=== PATIENT | male | born 1985 | race Asian ===

== ENCOUNTER 2020-07-23 09:47 | Observation (INO) ==
--- NOTE | 2020-06-29 14:08 | PAT Medication Instructions ---
Medication Instructions Date of Service June 29, 2020 Home Medications Medication Instructions Recorded miscellaneous medical supply #1 ea 10/29/18 lansoprazole [Prevacid SoluTab] 30 mg PO QAM cephalexin 500 mg PO QID sulfamethoxazole-trimethoprim 1 tab PO BID cetirizine 10 mg PO QAM Continue as directed cephalexin 500 mg PO QID sulfamethoxazole-trimethoprim 1 tab PO BID DO NOT take the morning of surgery cetirizine 10 mg PO QAM Take morning of surgery With a small sip of water, OTHERWISE NOTHING TO EAT OR DRINK AFTER MIDNIGHT: lansoprazole [Prevacid SoluTab] 30 mg PO QAM Other Notes If you have any questions please call us at [phone] or [phone] or [phone] or [phone]
--- NOTE | 2020-07-16 12:20 | Anesthesiology Consultation ---
Date of Service July 16, 2020 Assessment & Plan (1) Encounter for pre-operative examination: COVID screening: Per assessment on 07/16: Travel screen- returned from [place] 07/10-07/13. Patient vaccinated. No known COVID-19 positive contacts or current COVID-19 related symptoms. Surgeon arranging preop COVID testing (scheduled 07/21; [facility]). Awaiting results. Chart Review Chart Review: Acceptable Risk for Surgery and Patient seen in Pre Admission Testing Teaching & Discussion Pre-Anesthesia Teaching/Discussion Notes: Instructed NPO after midnight before surgery,except medications with 15 cc of water. Medication instructions provided according to the PAT guidelines. History Surgery Operation Date: 07/23/20 11:55 Proposed Procedures p Robotic Assisted Laparoscopic Adrenalectomy - Pankaj Briceno DO Height/Weight Height: 6 ft 0.5 in Weight: 95 kg Allergies Allergy/AdvReac Type Severity Reaction Status Date / Time No Known Allergies Allergy Verified 07/16/20 13:29 Medications Home Medications Medication Instructions Recorded Confirmed Last Taken miscellaneous medical supply #1 ea 10/29/18 07/16/20 Unknown lansoprazole [Prevacid SoluTab] 30 mg PO QAM 09/30/19 07/16/20 06/21/20 cetirizine 10 mg PO QAM 06/29/20 07/16/20 Unknown Past Medical History Medical History Adrenal mass, right History of seizure age 2 > "grew out of"/no issues since Hyperlipemia no meds Hypertension no meds Myelolipoma JAD (obstructive sleep apnea) Non-compliant with CPAP Seasonal allergies Exercise / Class Metabolic Activity II 4-5 Yardwork/Stairs/Walk up hill Past Family History Family History Other Hypertension Past Surgical History Surgical History History of appendectomy History of colonoscopy Past Anesthesia History No Hx of Anesthesia Complications and No Family Hx of Anesthesia Complications History of PONV No Hx of PONV and No Hx of Motion Sickness Social History Smoking Status: Current every day smoker tobacco type: cigarettes Smoking cigarettes per day: 10 cigs per day Do You Dip or Chew Tobacco: No Hx Alcohol Use: Yes Alcohol type: hard liquor alcohol intake frequency: a few times a week Alcohol Intake Frequency Comment: "7-10 shots liquor at a time" 3 times/week Hx Substance Use: No substance use type: does not use Review of Systems Patient denies chest pain, shortness of breath, dyspnea on exertion, fever, chills, cough, wheezing, palpitations. Physical Exam Vital Signs VITALS BP 118/81 P 98 TEMP 99.1 SP02 95%RA RESP 16 PHYSICAL Full cervical extension range of motion. Full TMJ range of motion. TMD 4 finger breaths Mallampati Score 2 Dentition: intact, lower front chipped tooth repair Lungs: clear throughout to auscultation Cardiac: regular rate and rhythm, no murmurs noted Spine: normal Extremities: no edema Lab Results Anesthesia Preop Results Results Anesthesia Widget: WBC 7.95 K/uL (4.8-10.8) 07/16/20 Hgb 17.7 g/dL (14.0-18.0) 07/16/20 Hct 51.9 % (42-52) 07/16/20 Plt 299 K/uL (130-400) 07/16/20 Na 139 mmol/L (136-145) 07/16/20 K 4.1 mmol/L (3.5-5.1) 07/16/20 Cl 103 mmol/L (98-107) 07/16/20 CO2 30 mmol/L (21-32) 07/16/20 BUN 7 mg/dl (7-18) 07/16/20 Creat 0.91 mg/dl (0.6-1.4) 07/16/20 Glucose Level 102 mg/dl (70-99) H 07/16/20 Urine Color Yellow 07/16/20 Urine Appearance Clear (Clear) 07/16/20 Urine pH 7.0 (4.5-7.5) 07/16/20 Urine Specific [place] 1.016 (1.000-1.030) 07/16/20 Urine Protein Negative (Negative) 07/16/20 Urine Glucose (UA) Negative (Negative) 07/16/20 Urine Ketones Trace (Negative) H 07/16/20 Urine Blood Negative (Negative) 07/16/20 Urine Nitrite Negative (Negative) 07/16/20 Urine Bilirubin Negative (Negative) 07/16/20 Urine Urobilinogen Negative (Negative) 07/16/20 Urine Leukocyte Esterase Negative (Negative) 07/16/20 Blood Type O Positive 07/16/20 Antibody Screen NEGATIVE 07/16/20 Testing Electrocardiogram Date: 07/16/20 Findings: + NSR @ (95) Chest X-Ray Date: 07/16/20 Findings: + NAD
[~2020-07-23 09:47] MED LIST: LR 15ML/HR IV SCH; ceFAZolin 2000MG 2,000 MG/15 ML SYR IV SCH
[2020-07-23] MEDS ORDERED: fentaNYL citrate 100 MCG/2 ML VIAL ONE ×3 (10:03→17:11)
[2020-07-23] MEDS ORDERED: MIDAZOLAM HCL 1 MG/ML 2ML VIAL ONE (10:03)
[2020-07-23] MEDS ORDERED: SUGAMMADEX SODIUM 200 MG/2 ML VIAL IV ONE (10:17)
[2020-07-23] MEDS ORDERED: ACETAMINOPHEN 1000 MG/100 ML IV IV ONE (10:18)
[2020-07-23] MEDS ORDERED: BUPIVACAINE 0.5 % 5 MG/1 ML MPF 30ML VIAL ONE (11:13)
[2020-07-23] MEDS ORDERED: fentaNYL citrate 100 MCG/2 ML VIAL IV PRN (11:45)
[2020-07-23] MEDS ORDERED: HYDROmorphone INJ 2 MG/ML SYR/VIAL IV PRN (11:45)
[2020-07-23] MEDS ORDERED: ONDANSETRON INJ 2 MG/ML 2 ML VIAL IV PRN ×2 (11:45→18:30)
[2020-07-23] MEDS ORDERED: ATROPINE SULFATE 0.1 MG/ML 10ML SYR IV PRN (11:45)
[2020-07-23] MEDS ORDERED: ePHEDrine sulfate 50 MG/ML AMP IV PRN (11:45)
--- NOTE | 2020-07-23 12:29 | History & Physical Bridge Note ---
Date of Service July 23, 2020 History & Physical Bridge Note I have examined the patient, reviewed the History & Physical and in the interval since the performance of the History & Physical I have noted the following changes of clinical significance: no changes noted
[2020-07-23] MEDS ORDERED: TISSEEL FIBRIN SEALANT 10ML TOP ONE (14:18)
[2020-07-23] MEDS ORDERED: SURGICEL ABSORB HEMOSTAT 2IN X 14IN TOP ONE (14:18)
[2020-07-23] MEDS ORDERED: FLOSEAL HEMOSTATIC MATRIX 10ML TOP ONE (14:18)
[2020-07-23] MEDS ORDERED: DEXAMETHASONE SOD INJ 4 MG/ML VIAL ONE (14:39)
[2020-07-23] MEDS ORDERED: PROPOFOL IV EMULSION 10 MG/ML 20 ML VIAL IV ONE (14:39)
[2020-07-23] MEDS ORDERED: ROCURONIUM BROMIDE 10 MG/ML 5 ML VIAL IV ONE (14:39)
[2020-07-23] MEDS ORDERED: diphenhydrAMINE 50 MG/ML VIAL ONE (14:39)
[2020-07-23] MEDS ORDERED: PHENYLEPHRINE 100MCG/ML 5ML SYR ONE (14:39)
[2020-07-23] MEDS ORDERED: LIDOCAINE 2% 2 ML VIAL/AMP(20MG/ML) INFIL ONE (14:39)
[2020-07-23] MEDS ORDERED: ONDANSETRON INJ 2 MG/ML 2 ML VIAL ONE (14:39)
--- NOTE | 2020-07-23 15:31 | Procedure Note ---
Procedure Note Date of Service July 23, 2020 Radial arterial line placed in right radial after induction in preparation for adrenalectomy with Dr. Briceno. Right wrist prepped with chlorhexidine and draped with sterile towels. 20 G angiocath placed under sterile technique utilizing sterile gloves, surgical hats and masks. Catheter threaded using seldinger technique with return of pulsatile, bright red blood. Site covered with occlusive dressing and taped in place. Waveform consistent with correct arterial placement. After placement, fingers of procedural hand had normal perfusion. Patient tolerated procedure well without complications. Allyson Bray MD, PhD Anesthesiologist Coding
[2020-07-23] MEDS ORDERED: VANCOMYCIN HCL 1000MG/20ML VIAL ONE (15:43)
[2020-07-23] MEDS ORDERED: KETOROLAC 30 MG/ML VIAL ONE (16:06)
[2020-07-23] MEDS ORDERED: PHENYLEPHRINE HCL 10 MG/ML VIAL ONE (16:16)
--- NOTE | 2020-07-23 17:31 | Operative Report ---
PG Post Operative Report Pre & Post Diagnosis Operation Date: 07/23/20 11:45 Pre-Op Diagnosis: Right Retroperitoneal/Adrenal Mass likely Myelolipoma Post-Op Diagnosis: Right Retroperitoneal/Adrenal Mass likely Myelolipoma I identified the patient and participated in the time-out.: Yes Procedure Operation Date: 07/23/20 11:45 Actual Procedures p Robotic-Assisted Right Laparoscopic Adrenalectomy with resection of retroperitoneal mass including resection of inferior liver edge attached to the mass, extensive lysis of adhesions (Right) - Pankaj Briceno DO Surgeon Pankaj Briceno, II, DO Clinical Medical Transcriptionist ELDA Coleman Estimated Blood Loss 150 Findings Consistent with Post-Op Diagnosis Retroperitoneal mass on right appearing to come off of right adrenal gland with likely necrotic fluid and severe attachment to Reidel's Lobe of the liver requiring resection of a small section of liver. Specimens Right adrenal gland with large retroperitoneal mass and resection of inferior edge of liver. Drains 10 Fr flat drain 18 Fr Tovar Anesthesia Type General Complications none Disposition Disposition: Recovery Room Indications Patient with large retroperitoneal mass/lession thought to likely be myelolipoma vs adenoma of the adrenal gland. Patient underwent workup for functional status. Patient was specifically worked up for pheochromocytoma and found to be negative. Risks and benefits discussed at length. Description of Procedure The patient was brought to the operative suite and placed under general endotracheal intubation anesthesia in the supine position. The patient was transferred to lateral position with the right flank exposed. The patient was placed into a flex'ed position and then placed into mild reverse Trendelenburg. At this point, the patient prepped and draped in the usual sterile fashion and a timeout was completed. Preoperative weight based antibiotics had been given. ROBBY's and SCD's were placed on the patient's lower extremities. A catheter was placed by nursing using sterile technique. With the time out completed the patient was flexed and the skin was marked. The skin lateral to the right midclavicular line was anesthetized. A small incision was made into the skin and subcutaneous tissues. A Varess needle was selected and placed. The needle was easily moved and it was irrigated and aspirated without any issues or concerns for placement. Insufflation commenced. Once insufflated, the lateral edge of the rectus sheath was marked and anesthetized. The skin was incised and a camera port was placed. The cavity was insufflated to 15 mmHG. The laparoscopic camera was placed and the abdominal cavity inspected. No concerning features were noted. At this point, the skin was marked for port placement and 3 x 8mm working ports were placed. The skin was anesthetized down to fascia and an approx 1cm incision was made to place the 3 x 8mm ports. A 10mm and 5 mm speech pathology assistant ports were also placed in similar fashion under direct visualization. The robot was positioned and docked. The camera was placed and all trocars were positioned under direct visualization. ELDA Tapia was integral in port placement, camera utilization, and docking procedure. She remained in sterile attire and then proceeded to assist the remainder of the case. The colon was mobilized medially to expose the retroperitoneum and the area assessed. Significant Adhesions were freed to allow mobilization. Greater than 30 minutes was required for lysis of adhesions. An additional small amount of adhesions were noted from the colon and were freed. These were dissected with blunt technique. Cautery was used to assist dissection and control bleeding. The retroperitoneal fat was assessed. The adenoma as well as the IVC was identified. Care was taken to dissect down near the IVC. This was then followed superiorly. Dissection stayed toward the midline along the IVC and the ureter and gonadal vein were avoided. The dissection was followed to the renal pelvis. The Renal Vein was identified and exposed. Dissection was taken further superior. The adenoma began to limit dissection. This was then mobilized and care was taken to slowly dissect between the adenoma/adrenal gland and the IVC. The Adrenal vein was identified. Two hemolock clips were used to clamp the vein. No changes in heart rate or blood pressure occurred with placement of the clips. The vein was then transected. The very large retroperitoneal mass made dissection difficult and limited mobility. It was difficult to fully determine if the mass was coming off of the adrenal gland, which was able to be largely seen intact, or if it was a separate retroperitoneal mass. The adrenal gland with the attached/adjacent mass was then slowly dissected. Small vessels were ligated and cut as dissection progressed. The posterior, inferior, and superior surfaces were dissected free. No major bleeding or other issues. The posterior and superior edge was found to be increasingly adhered to the liver surfaces as dissection moved laterally. The inferior edge was also f ound to be more attached to the retroperitoneal fat and superior kidney as the dissection moved lateral. The edge adjacent to Farideh's lobe of the liver was found to be severely adhered and manipulation caused tearing of both the liver capsule and the mass. Necrotic appearing tissue was found within the mass. In order to try to maintain as much integrity of the mass as possible and limit further tearing or spillage the edge of the liver on the inferior and posterior portion and along Farideh's lobe was resected and sent still attached to the retroperitoneal mass. In the inferior posterior corner a bleeding vessel was found and was ligated with hemoclips. All bleeding was controlled on the resected edge of the liver. Cautery as well as hemostatic agents were utilized on top of pressure. The mass was then finally able to be fully freed. It was moved inferiorly and the entire wound bed was assessed. Vancomycin infused solution as well as sterile water was used copious times to irrigate the entire area. All remaining tissue was inspected. The specimen was placed into a catch bag and set to the side. Surgicel hemostatic agent sheets were placed under the liver and on the incised edge. The resected edge in particular was evaluated and additional agents were placed. Hemostatic agents Tisseel and Floseal were also placed. Hemostatic agent was also placed on the IVC and the vein stump. No major bleeding or other issues. A Flat drain was placed through the inferior 8 mm robot arm and the port was removed. It was positioned in the gutter lateral to the liver and colo n. This was secured with a 3-0 nylon suture. The entire dissection space was inspected one final time. No bleeding or injuries or areas of concern were noted. No tumor or other concerning features were noted. The kidney appeared to be without injury or area of concern. At this point, the robot was undocked and moved away from the patient. The port sites were all assessed laparoscopically. The endoscopic bag was moved into the inferior 10 mm port site which had been placed near the lateral edge of the patient's previous appendectomy scar. The other ports were assessed and no issues observed. The Grider-like incision was opened further exposing fascia which was then opened in order to removed the mass within the bag. A running 1-0 Vicryl suture was used to close the peritoneal tissue and the posterior sheath fascia. A running 1-0 PDS suture was used to close the anterior sheath. An additional 3-0 Vicryl suture was used to close subcutaneous tissues. The skin at each site was closed with a stapling device. The area was cleaned and bandage placed on each incision. The patient was cleaned and bandaged. He was moved back into the supine position The patient was cleaned, aroused from anesthesia, and transferred to the pacu in stable condition having tolerated the procedure well with no complications. I was present and participated in all aspects of the procedure. ELDA Coleman was critical in the portions as mentioned above. Patient will be monitored postoperatively. Will monitor patient's function and issues overnight. We will plan to reassess drain in the morning with plans for possible removal prior to discharge. I attest to the content of the Intraoperative Record and any orders documented therein. Any exceptions are noted below.
[2020-07-23 18:09] LABS: Basophils # (auto) 0.01 K/uL (0-0.2); Basophils % (auto) 0.1 %; Eosinophils # (auto) 0.01 K/uL (0-0.5); Eosinophils % (auto) 0.1 %; Hematocrit (blood only) 47.8 % (42-52); Hemoglobin 15.8 g/dL (14.0-18.0); Immature Granulocytes # (auto) 0.09 K/uL (0.00-0.02); Immature Granulocytes % (auto) 0.5 %; Lymphocytes # (auto) 0.45 K/uL (1.2-3.4); Lymphocytes % (auto) 2.7 %; Mean Corpuscular Hemoglobin 28.8 pg (25-34); Mean Corpuscular Volume 87.2 fL (80-100); Mean Platelet Volume 9.9 fL (7.4-10.4); Monocytes # (auto) 0.51 K/uL (0.11-0.59); Neutrophils # (auto) 15.78 K/uL (1.4-6.5); Neutrophils % (auto) 93.6 %; Platelet Count 221 K/uL (130-400); RDW Coefficient of Variation 15.6 % (11.5-14.5); RDW Standard Deviation 50.4 fL (36.4-46.3); Red Blood Count 5.48 M/uL (4.7-6.1); White Blood Count 16.85 K/uL (4.8-10.8)
[2020-07-23 18:29] LABS: Mean Corpuscular Hgb Conc 33.1 g/dL (32-36)
[2020-07-23] MEDS ORDERED: oxyCODONE HCL IR 5 MG TAB (IMMEDIATE RELEASE) PO PRN (18:30)
[2020-07-23] MEDS ORDERED: MoRPHine SULFATE 2 MG/ML CARP IV PRN (18:30)
[2020-07-23] MEDS ORDERED: MoRPHine SULFATE 4 MG/ML 1 ML CARP\\VIAL IV PRN (18:30)
[2020-07-23] MEDS ORDERED: ACETAMINOPHEN 325 MG TAB PO PRN (18:30)
[2020-07-23 18:31] LABS: BUN Creatinine Ratio 11.2 (10-20); Calcium 8.2 mg/dl (8.5-10.1); Creatinine Clr Calc Pharmacy 106.3 ml/min; Est GFR (African American) 102.5 ml/min; Est GFR (Non-African American) 88.5 ml/min; Potassium 4.4 mmol/L (3.5-5.1)
--- NOTE | 2020-07-23 18:42 | Anesthesiology Progress Note ---
Date of Service July 23, 2020 Anesthesia Post Procedure Vital Signs Vital Signs: Temp Pulse Pulse Resp BP Pulse Ox 07/23/20 18:20 37.1 C 81 13 133/79 96 07/23/20 18:10 37.1 C 89 15 127/87 93 07/23/20 18:00 94 H 16 124/86 94 07/23/20 17:50 98 H 22 144/84 H 94 07/23/20 17:43 37.0 C 103 H 13 123/92 98 07/23/20 10:18 36.9 C 82 18 126/85 95 Transfer of Care Handoff Completed per policy Notes Mental Status: alert / awake / arousable and participated in evaluation Patient Amnestic to Procedure: Yes Nausea / Vomiting: adequately controlled Pain: adequately controlled Airway Patency, RR, SpO2: stable & adequate BP & HR: stable & adequate Hydration State: stable & adequate Anesthetic Complications: no major complications apparent and Pt Satisfied with anesthetic care
[2020-07-23] MEDS: oxyCODONE HCL IR 5 MG TAB (IMMEDIATE RELEASE) PO PRN (20:00)
[2020-07-23] MEDS: LACTATED RINGER'S 1,000 ML IV SCH (20:01)
--- NOTE | 2020-07-23 20:29 | Hospitalist Consultation ---
Date of Consultation July 23, 2020 Assessment & Plan (1) Severe obstructive sleep apnea: Sleep study 2019- AHI 12.9 - BIPAP 12/6 with backup rate of 14 - Compliance average 53% of time in use - He reports he doesn't really wear this at home. - Instructed patient that with his anesthesia and narcotics while in hospital he needs to wear this at night when sleeping and when napping in house, as this could lead to obstruction and hypoventilation/hypoxia/. He verbalized he understood and will wear it. - Lungs clear on auscultation no stridor (2) Myelolipoma: With adrenalectomy- Per Urology - Unilateral, not roma syndrome prior, not on steroids prior - Follow BMP, Glucose, CBC - ABX per primary team - Pain control per primary team - Chemoprophylaxis per primary team (3) Hypertension: Not on agents as outpatient- follow trends in house - call if SBP >180 (4) Hyperlipemia: Reports no medication at home - Follow with PCP (5) History of ETOH abuse: Review of records show prior ETOH use 3-5 nights per week multiple drinks - says he drinks 3-5 drinks per week now - AAWS with Ativan >6 tiered for withdraw (6) GERD (gastroesophageal reflux disease): Patient complaining of heartburn at this time with hiccups at current - Protonix 40 mg now - Protonix 40 mg Qam History of Present Illness Attending Physician: Pankaj Briceno, II, DO History of Present Illness 34 YOM with past medical history of, Asthma obesity, severe JAD, alcohol abuse, HTN, right renal mass, GERD. Patient was admitted today for a right robot assisted laparoscopic adrenalectomy for a large fat containing tumor. He is POD#0 and received 8mg of Decadron during the case and Benadryl for hives during induction. These are no longer present. He is on BiPAP 12/6 at home with a back up rate of 14. His CPAP compliance is not great, with review from 2019. Medicine was consulted for his BiPAP use as well as monitoring for ETOH withdraw. Patient was not "cushanoid" and not on any steroids prior. He was evaluated in his room. Easily arousable, pain pretty well controlled other than with coughing. He denies any nausea or vomiting, is tolerating water without difficulty. Did not eat much of his dinner. Added: - BiPAP 01/11 with back up rate of 14 (his home settings) this should be used when napping and sleeping for the first 24 hours following surgery as to avoid obstruction with narcotics. - His ETOH use was mentioned in his PCP note from previous, however patient says he socially drinks now about 3-5 drinks per week. Added AAWS protocol with Ativan PRN coverage for AAWS >6. Allergies Allergy/AdvReac Type Severity Reaction Status Date / Time No Known Allergies Allergy Verified 07/23/20 10:22 Home Medications Medication Instructions Recorded Confirmed Type miscellaneous medical supply #1 ea 10/29/18 07/16/20 Rx lansoprazole [Prevacid SoluTab] 30 mg PO QAM 09/30/19 07/23/20 History cetirizine 10 mg PO QAM 06/29/20 07/23/20 History Patient History Medical History Adrenal mass, right History of seizure age 2 > "grew out of"/no issues since Hyperlipemia no meds Hypertension no meds Myelolipoma JAD (obstructive sleep apnea) Non-compliant with CPAP Seasonal allergies Surgical History History of appendectomy History of colonoscopy Family History Other Hypertension Social History Smoking Status: Never smoker Cigarettes Per Day: 10 cigs per day; Second Hand Exposure: No; Do You Dip or Chew Tobacco: No; Tobacco Cessation Education Requested by Patient: No Hx Alcohol Use: Yes Alcohol type: hard liquor Alcohol Intake Frequency Comment: 5 times a week, 4 drinks at least up to 12 drinks Hx Substance Use: No Preferred Language: Swedish Communication Ability: Effective Metal Grinder Required: No Beliefs That Will Affect Care: None Current Living Situation: Alone Other Information That Helps Us Care for You: No Feels Safe at Home: Yes Safety Concerns: Feels Safe At This Time Assistive Devices: Glasses Review of Systems Review of Systems: REVIEW OF SYSTEMS: Constitutional: No fever, sweats or chills Eyes: No diplopia, no worsening or blurred vision ENT: normal hearing, no trouble swallowing Respiratory: (+) snoring, No cough, sputum, dyspnea at rest or on exertion Cardiovascular: No chest pain, tightness or palpitations Abdomen: (+) heartburn, pain at surgical site, No pain, nausea, vomiting, diarrhea or constipation Musculoskeletal: No joint pain, calf pain, swelling Neurologic: No weakness, numbness/tingling, or balance problems Psychiatric: No anxiety or depression Skin: No rash or itch Physical Exam Physical Exam: PHYSICAL EXAM: General: awake, alert, no apparent distress Head: Normocephalic, atraumatic ENT: PERRL, EOMI, no pharyngeal exudate, mucous membranes moist Neuro: AAO x 3, speech clear and appropriate, strength intact bilaterally 5/5, sensation intact and equal all extremities and dermatomes, no pronator drift Chest: equal rise and fall of the chest, no accessory muscle use, no heaves or thrills, Clear to auscultation, on room air, Cardiac: Regular rate and rhythm, S1S2, skin warm dry, cap refill <3 seconds, peripheral pulses +2 no JVD, no murmur, no JVD, no edema GI: hypoactive bowel sounds quadrants, soft, tender to palpation right anterior, laparoscopic, sites covered with no strikethrough or surrounding hematoma/ecchymosis, : Spontaneously voiding, no pain, no CVA tenderness, Extremities: Normal inspection, no peripheral edema or erythema, calfs nontender to palpation Psych: Normal mood and affect Skin: no rash or erythema Results & Data Results & Data ([facility]) Vital Signs (Past 12 Hours) Vital Signs Temp Pulse Pulse Resp BP Pulse Ox 07/23/20 20:02 89 95 07/23/20 19:40 36.6 C 80 16 118/80 97 07/23/20 19:11 36.9 C 75 16 112/74 98 07/23/20 18:30 37.1 C 81 16 118/79 93 07/23/20 18:20 37.1 C 81 13 133/79 96 07/23/20 18:10 37.1 C 89 15 127/87 93 07/23/20 18:00 94 H 16 124/86 94 07/23/20 17:50 98 H 22 144/84 H 94 07/23/20 17:43 37.0 C 103 H 13 123/92 98 07/23/20 10:18 36.9 C 82 18 126/85 95 Laboratory Results Abnormal lab results 07/23/20 07/23/20 Range/Units 17:58 17:58 WBC 16.85 H (4.8-10.8) K/uL RDW Std Deviation 50.4 H (36.4-46.3) fL RDW Coeff of Ele 15.6 H (11.5-14.5) % Neut # (Auto) 15.78 H (1.4-6.5) K/uL Lymph # (Auto) 0.45 L (1.2-3.4) K/uL Immature Gran # (Auto) 0.09 H (0.00-0.02) K/uL Glucose 143 H (70-99) mg/dl Calcium 8.2 L (8.5-10.1) mg/dl Diagnostic Findings Imaging reviewed from 07/16- no acute pulmonary process on CXR Medications Administered Lactated Ringer's (Lr) 1,000 mls @ 100 mls/hr IV .Q10H GAURI Stop: 08/22/20 18:29 Last Admin: 07/23/20 20:01 Dose: 100 mls/hr Documented by: [id number] Oxycodone HCl (Oxycodone Hcl Ir 5 Mg Tab (Immediate Release)) 5 mg PO Q4H PRN PRN Reason: MODERATE Pain (4,5,6) & Pre PT Stop: 08/06/20 18:29 Last Admin: 07/23/20 20:00 Dose: 5 mg Documented by: [id number] Discontinued Medications Bupivacaine HCl (Bupivacaine 0.5 % 5 Mg/1 Ml Mpf 30ml Vial) Confirm Administered Dose 30 ml .ROUTE .STK-MED ONE Stop: 07/23/20 11:14 Last Admin: 07/23/20 16:44 Dose: 30 ml Documented by: [id number] Cefazolin Sodium (Ancef 2000mg) 2,000 mg in 15 mls @ 3.75 mls/min IV PREOP GAURI; Protocol Stop: 07/24/20 05:59 Last Admin: 07/23/20 13:02 Dose: 3.75 mls/min Documented by: [id number] Lactated Ringer's (Lr) 1,000 mls @ 15 mls/hr IV .Q24H GAURI Stop: 07/24/20 05:59 Last Infusion: 07/23/20 13:02 Dose: 0 mls/hr Documented by: [id number] Admin: 07/23/20 10:25 Dose: 15 mls/hr Documented by: [id number] Miscellaneous ( Floseal Hemostatic Matrix 10ml) 10 ml TOP ONCE ONE Stop: 07/23/20 14:19 Last Admin: 07/23/20 16:08 Dose: 10 ml Documented by: [id number] Miscellaneous (Surgicel Absorb Hemostat 2in X 14in) 1 ea TOP ONCE ONE Stop: 07/23/20 14:19 Last Admin: 07/23/20 15:39 Dose: 2 ea Documented by: [id number] Miscellaneous (Tisseel Fibrin Sealant 10ml) 10 ml TOP ONCE ONE Stop: 07/23/20 14:19 Last Admin: 07/23/20 16:08 Dose: 10 ml Documented by: [id number] Vancomycin HCl (Vancomycin Hcl 1000mg/20ml Vial) Confirm Administered Dose 50 mg .ROUTE .STK-MED ONE Stop: 07/23/20 15:44 Last Admin: 07/23/20 16:07 Dose: 50 mg Documented by: [id number] ECG Additional Comments: Vent. Rate : 095 BPM Atrial Rate : 095 BPM P-R Int : 134 ms QRS Dur : 090 ms QT Int : 346 ms P-R-T Axes : 043 073 044 degrees QTc Int : 434 ms Normal sinus rhythm Normal ECG When compared with ECG of 04-AUG-2018 22:47, No significant change was found Confirmed by Sascha Schmidt ([id number]) on 07/17/2020 6:56:55 AM PG Care Time/CCT Total # of Minutes Spent Total Time Spent with Patient: Total time spent is greater than 50% in coordination of care (as documented) at patient's floor/unit and/or counseling patient: Coding Level of Care Code 63378 Inpt Consult Level 3 Diagnoses Severe obstructive sleep apnea G47.33 Myelolipoma D17.9 Hypertension I10 Hypertension type: essential hypertension Hyperlipemia E78.5 Hyperlipidemia type: unspecified History of ETOH abuse F10.11 GERD (gastroesophageal reflux disease) K21.9 Esophagitis presence: esophagitis presence not specified (1) Hypertension Hypertension type: essential hypertension Qualified Code(s): I10 - Essential (primary) hypertension (2) Hyperlipemia Hyperlipidemia type: unspecified Qualified Code(s): E78.5 - Hyperlipidemia, unspecified (3) GERD (gastroesophageal reflux disease) Esophagitis presence: esophagitis presence not specified Qualified Code(s): K21.9 - Gastro-esophageal reflux disease without esophagitis
[2020-07-23] MEDS ORDERED: LORazepam 1 MG/2 ML VIAL IV PRN (20:44)
[2020-07-23] MEDS ORDERED: LORazepam 1 MG TAB PO PRN (20:44)
[2020-07-23] MEDS ORDERED: PANTOprazole 40 MG TAB PO ONE (20:51)
[2020-07-23] MEDS: ceFAZolin 2000MG 2,000 MG/15 ML SYR IV SCH (21:49)
[2020-07-24] MEDS: ceFAZolin 2000MG 2,000 MG/15 ML SYR IV SCH (05:55)
[2020-07-24] MEDS: LACTATED RINGER'S 1,000 ML IV SCH ×2 (05:57→15:55)
[2020-07-24] MEDS: oxyCODONE HCL IR 5 MG TAB (IMMEDIATE RELEASE) PO PRN ×3 (06:01→22:30)
[2020-07-24 06:26] LABS: Eosinophils # (auto) 0.01 K/uL (0-0.5); Eosinophils % (auto) 0.1 %; Hematocrit (blood only) 42.6 % (42-52); Hemoglobin 14.1 g/dL (14.0-18.0); Immature Granulocytes # (auto) 0.04 K/uL (0.00-0.02); Immature Granulocytes % (auto) 0.3 %; Lymphocytes # (auto) 0.64 K/uL (1.2-3.4); Lymphocytes % (auto) 5.2 %; Mean Corpuscular Hemoglobin 28.7 pg (25-34); Mean Corpuscular Hgb Conc 33.1 g/dL (32-36); Mean Corpuscular Volume 86.6 fL (80-100); Monocytes # (auto) 1.58 K/uL (0.11-0.59); Monocytes % (auto) 12.8 %; Neutrophils # (auto) 10.06 K/uL (1.4-6.5); Neutrophils % (auto) 81.6 %; Platelet Count 231 K/uL (130-400); RDW Coefficient of Variation 15.7 % (11.5-14.5); RDW Standard Deviation 49.7 fL (36.4-46.3); Red Blood Count 4.92 M/uL (4.7-6.1); White Blood Count 12.33 K/uL (4.8-10.8)
[2020-07-24] MEDS ORDERED: COUGH DROP (SUGAR FREE) LOZ 24 LOZ/1 BOX BUCCAL ONE (06:46)
[2020-07-24 06:54] LABS: BUN Creatinine Ratio 9.7 (10-20); Calcium 8.1 mg/dl (8.5-10.1); Creatinine Clr Calc Pharmacy 102.5 ml/min; Est GFR (African American) 98.1 ml/min; Est GFR (Non-African American) 84.7 ml/min; Potassium 4.3 mmol/L (3.5-5.1)
[2020-07-24] MEDS: LANSOPRAZOLE 30 MG SOLTAB PO SCH (08:16)
[2020-07-24] MEDS: PANTOprazole 40 MG TAB PO SCH (08:16)
--- NOTE | 2020-07-24 08:24 | Hospitalist Progress Note ---
Date of Service July 24, 2020 Assessment & Plan (1) Myelolipoma: Found on CT, increasing in size and causing discomfort. POD #1 p Robotic-Assisted Right Laparoscopic Adrenalectomy with resection of retroperitoneal mass including resection of inferior liver edge attached to the mass, extensive lysis of adhesions (Right) - Pankaj Briceno, DO EBL 150cc. KAT drainage decreased Hgb stable Not on steroids prior, not roma syndrome prior -- No s/sx adrenal insufficiency --> Pathology pending. -- Management per Urology regarding pain control, abx, IVF (LR running currently) LFT elevation TB1.4, AST 171, ALT, ALP wnl-> repeating this afternoon WBC elevation --> secondary to surgery, no fever. Trending down on AM labs but will repeat with afternoon chemistries IF LFTs/WBC improving and patient voiding post-operatively stable for discharge (2) Severe obstructive sleep apnea: Sleep study 2019- AHI 12.9 - BIPAP / with backup rate of 14 - Compliance average 53% of time in use - He reports he doesn't really wear this at home. - Instructed patient that with his anesthesia and narcotics while in hospital he needs to wear this at night when sleeping and when napping in house, as this could lead to obstruction and hypoventilation/hypoxia/. He verbalized he understood and will wear it. - Lungs clear on auscultation no stridor Only able to tolerate for short period of time. --Also likely with allergies, and did not take zyrtec as in subjective he had not tried in past when prescribed with the prevacid. Discussed continuing at d/c. Encouraged increased compliance as symptoms controlled If continued cough/WBC/fever would repeat CXR however lungs CTAB on examination this morning (3) Hypertension: Not on agents as outpatient- follow trends in house - call if SBP >180 STable (4) Hyperlipemia: Reports no medication at home - Follow with PCP (5) History of ETOH abuse: Review of records show prior ETOH use 3-5 nights per week multiple drinks - says he drinks 3-5 drinks per week now - AAWS with Ativan >6 tiered for withdraw No s/sx withdrawal (6) GERD (gastroesophageal reflux disease): Present but controlled for the most part --> consider switch Prevacid to Protonix at d/c. Can send rx Also ordered dose of Zyrtec and discussed allergies -- monitor response Thank you for allowing hospitalist service to participate in the care of Mr Tolliver. Hospitalist service will follow along if remains inpatient Admission and Anticipated Discharge Date Admission Date: July 23, 2020 Supervising Physician Co-Signing Physician Notes PA Supervision Note: I did not personally see or examine the patient today, but I verified all acuna points of JENNIFER Hightower's assessment and plan with the following exceptions/additions: None Subjective Patient evaluated this morning. Feeling generally well. Pain controlled with ordered medications. Song removed this morning, pushing fluids but has yet to urinate. KAT drainage with ~35cc bloody drainage, to be removed before d/c. Occasional cough. Hx reflux and states he did run out of his medication and then didn't pick it up for several days prior to surgery. He was also prescribed Zyrtec at same time as Prevacid but notes he never started this. Cough worse in the morning and feeling like he has a post-nasal drip with clear phlegm that once cleared, feels better. Unfortunately due to pain he has trouble coughing but feels like he has some phlegm to get up. Discussed likely allergies and reflux symptoms and will order dose of zyrtec to see if symptoms improved. He does note more improvement with the protonix and will send rx at d/c. Elevated tbili -- hx of heavier drinking and elevated in past and he says this has been up before, but along with AST/ALT due to liver resection piece will repeat to ensure trending down. Wore BiPAP for a little last night but due to reflux/cough was unable to tolerate much. If voids this afternoon, and labs improved considering sending home and will await pathology. Review of Systems Review of Systems: All systems reviewed & are unremarkable except as noted in HPI & below Physical Exam Physical Exam: PHYSICAL EXAM: General: awake, alert, no apparent distress Head: Normocephalic, atraumatic ENT: PERRL, EOMI, mmm, post-nasal drip. Mallampati II, thick neck Chest: equal rise and fall of the chest, no accessory muscle use, no heaves or thrills, Clear to auscultation, on room air, Cardiac: Regular rate and rhythm, S1S2, skin warm dry, cap refill <3 seconds, peripheral pulses +2 no JVD, no murmur, no JVD, no edema GI: +BS, soft, tender to palpation right anterior, laparoscopic, sites covered with no strikethrough or surrounding hematoma/ecchymosis, KAT drain ~30cc bloody drainage : NO SONG Extremities: Normal inspection, no peripheral edema or erythema, calfs nontender to palpation Neuro: AAO x 3, speech clear and appropriate, strength intact bilaterally 5/5, sensation intact and equal all extremities and dermatomes, no pronator drift Psych: AOx3, euthymic Skin: no rash or erythema Results & Data Results & Data ([facility]) Vital Signs (Past 12 Hours) Vital Signs Temp Pulse Pulse Resp BP Pulse Ox 07/24/20 07:28 36.8 C 73 18 102/68 96 07/24/20 02:13 36.8 C 82 15 111/74 92 07/23/20 22:13 36.9 C 85 16 113/78 93 07/23/20 20:42 37.1 C 87 16 145/87 H 92 Laboratory Results 07/24/20 07/24/20 07/23/20 Range/Units 05:27 05:27 17:58 WBC 12.33 H (4.8-10.8) K/uL RBC 4.92 (4.7-6.1) M/uL Hgb 14.1 (14.0-18.0) g/dL Hct 42.6 (42-52) % MCV 86.6 (80-100) fL MCH 28.7 (25-34) pg MCHC 33.1 (32-36) g/dL RDW Std Deviation 49.7 H (36.4-46.3) fL RDW Coeff of Ele 15.7 H (11.5-14.5) % Plt Count 231 (130-400) K/uL MPV 10.0 (7.4-10.4) fL Immature Gran % (Auto) 0.3 % Neut % (Auto) 81.6 % Lymph % (Auto) 5.2 % [place] % (Auto) 12.8 % Eos % (Auto) 0.1 % Baso % (Auto) 0.0 % Neut # (Auto) 10.06 H (1.4-6.5) K/uL Lymph # (Auto) 0.64 L (1.2-3.4) K/uL [place] # (Auto) 1.58 H (0.11-0.59) K/uL Eos # (Auto) 0.01 (0-0.5) K/uL Baso # (Auto) 0.00 (0-0.2) K/uL Immature Gran # (Auto) 0.04 H (0.00-0.02) K/uL Sodium 137 136 (136-145) mmol/L Potassium 4.3 4.4 (3.5-5.1) mmol/L Chloride 102 102 (98-107) mmol/L Carbon Dioxide 31 25 (21-32) mmol/L Anion Gap 4.0 9.0 (3-11) BUN 11 12 (7-18) mg/dl Creatinine 1.12 1.08 (0.6-1.4) mg/dl Est Cr Clr Drug Dosing 102.5 106.3 ml/min Est GFR ( Amer) 98.1 102.5 ml/min Est GFR (Non-Af Amer) 84.7 88.5 ml/min BUN/Creatinine Ratio 9.7 L 11.2 (10-20) Glucose 142 H 143 H (70-99) mg/dl Calcium 8.1 L 8.2 L (8.5-10.1) mg/dl COVID-19 Eval Order SARS-CoV-2, RNA, NAAT (NEGATIVE) 07/23/20 07/23/20 07/23/20 Range/Units 17:58 10:12 10:12 WBC 16.85 H (4.8-10.8) K/uL RBC 5.48 (4.7-6.1) M/uL Hgb 15.8 (14.0-18.0) g/dL Hct 47.8 (42-52) % MCV 87.2 (80-100) fL MCH 28.8 (25-34) pg MCHC 33.1 (32-36) g/dL RDW Std Deviation 50.4 H (36.4-46.3) fL RDW Coeff of Ele 15.6 H (11.5-14.5) % Plt Count 221 (130-400) K/uL MPV 9.9 (7.4-10.4) fL Immature Gran % (Auto) 0.5 % Neut % (Auto) 93.6 % Lymph % (Auto) 2.7 % [place] % (Auto) 3.0 % Eos % (Auto) 0.1 % Baso % (Auto) 0.1 % Neut # (Auto) 15.78 H (1.4-6.5) K/uL Lymph # (Auto) 0.45 L (1.2-3.4) K/uL [place] # (Auto) 0.51 (0.11-0.59) K/uL Eos # (Auto) 0.01 (0-0.5) K/uL Baso # (Auto) 0.01 (0-0.2) K/uL Immature Gran # (Auto) 0.09 H (0.00-0.02) K/uL Sodium (136-145) mmol/L Potassium (3.5-5.1) mmol/L Chloride (98-107) mmol/L Carbon Dioxide (21-32) mmol/L Anion Gap (3-11) BUN (7-18) mg/dl Creatinine (0.6-1.4) mg/dl Est Cr Clr Drug Dosing ml/min Est GFR ( Amer) ml/min Est GFR (Non-Af Amer) ml/min BUN/Creatinine Ratio (10-20) Glucose (70-99) mg/dl Calcium (8.5-10.1) mg/dl COVID-19 Eval Order Covid19 [facility] SARS-CoV-2, RNA, NAAT NEGATIVE (NEGATIVE) PG Care Time/CCT Total # of Minutes Spent Total Time Spent with Patient: Total time spent is greater than 50% in coordination of care (as documented) at patient's floor/unit and/or counseling patient: Coding Level of Care Code 63197 Subseq Hosp Care Lvl 3 Diagnoses Myelolipoma D17.9 Severe obstructive sleep apnea G47.33 Hypertension I10 Hypertension type: essential hypertension Hyperlipemia E78.5 Hyperlipidemia type: unspecified History of ETOH abuse F10.11 GERD (gastroesophageal reflux disease) K21.9 Esophagitis presence: esophagitis presence not specified (1) Hyperlipemia Hyperlipidemia type: unspecified Qualified Code(s): E78.5 - Hyperlipidemia, unspecified (2) GERD (gastroesophageal reflux disease) Esophagitis presence: esophagitis presence not specified Qualified Code(s): K21.9 - Gastro-esophageal reflux disease without esophagitis (3) Hypertension Hypertension type: essential hypertension Qualified Code(s): I10 - Essential (primary) hypertension
[2020-07-24] MEDS ORDERED: CETIRIZINE HCL 10 MG TABLET PO SCH (09:00)
--- NOTE | 2020-07-24 09:30 | Urology Progress Note ---
Date of Service July 24, 2020 Assessment & Plan (1) Adrenal mass, right: - Postop day #1 status post Robotic-Assisted Right Laparoscopic Adrenalectomy with resection of retroperitoneal mass including resection of inferior liver edge attached to the mass, extensive lysis of adhesions with Dr. Briceno - Patient feeling well, pain controlled. - He is afebrile, VSS. - Labs reviewed, Wbc trending back down to 12.33 today (16.85 on postoperative labs). Creatinine stable. Hemoglobin 14.1. - Will advance diet this morning. - Ok to remove madrigal catheter this morning and monitor ability to spontaneously void. - Maintain KAT drain for now. - Encourage ambulation and use of incentive spirometer. - Hospital team following, appreciate consultation. - Will reassess this afternoon, possibly home later today if continues to progress. Admission and Anticipated Discharge Date Admission Date: July 23, 2020 Subjective Pt examined at bedside this AM. Awake, resting in bed on arrival. Overall feeling well this morning. He reports mild right-sided discomfort, mostly when coughing, and tolerable with IV/PO pain medication. Also reports a cough this morning, associates with hx of GERD. Denies fevers or chills. No nausea or vomiting. Tolerating clear liquid diet. Madrigal catheter intact, draining clear, yellow urine. KAT drain with small amount of serosanguineous drainage. Ambulated this morning without dizziness or lightheadedness. Chart review: Afebrile Wbc 12.33 Hgb 14.1 Cr 1.12 Madrigal output overnight - 650ml KAT output overnight- 10 ml Review of Systems Constitutional: as per Subjective / HPI Gastrointestinal: as per Subjective / HPI Genitourinary: + as per Subjective / HPI Physical Exam Constitutional: well developed and well nourished; no acute distress Respiratory: no labored breathing and no audible wheezes Gastrointestinal (Abdomen): Inspection/Auscultation: + abdominal surgical incision (Gauze/medipore dressing c/d/i; KAT drain intact) Percussion/Palpation: + abdomen tender (mild tenderness around incision sites) and abdomen soft; no guarding and abdomen not rigid Musculoskeletal: Head/Neck/Chest: normocephalic Skin: no rashes, warm and dry Neurologic: moves all extremities and awake Psychiatric: A+Ox3, euthymic affect Genitourinary: Madrigal catheter intact, draining clear yellow urine Results & Data ([facility]) Vital Signs (Past 12 Hours) Vital Signs Temp Pulse Resp BP Pulse Ox 07/24/20 07:28 36.8 C 73 18 102/68 96 07/24/20 02:13 36.8 C 82 15 111/74 92 07/23/20 22:13 36.9 C 85 16 113/78 93 PG Care Time/CCT Total # of Minutes Spent Total Time Spent with Patient: Total time spent is greater than 50% in coordination of care (as documented) at patient's floor/unit and/or counseling patient: Coding Level of Care Code None Diagnoses Adrenal mass, right E27.8
[2020-07-24 10:31] LABS: Albumin Level 3.4 gm/dl (3.4-5.0); Bilirubin Direct 0.3 mg/dl (0-0.2); Bilirubin,Total 1.4 mg/dl (0.2-1); Total Protein 6.4 gm/dl (6.4-8.2)
[2020-07-24 13:22] LABS: Hematocrit (blood only) 42.3 % (42-52); Hemoglobin 14.1 g/dL (14.0-18.0); Mean Corpuscular Hemoglobin 28.9 pg (25-34); Mean Corpuscular Hgb Conc 33.3 g/dL (32-36); Mean Corpuscular Volume 86.7 fL (80-100); Mean Platelet Volume 9.7 fL (7.4-10.4); Platelet Count 223 K/uL (130-400); RDW Coefficient of Variation 15.8 % (11.5-14.5); RDW Standard Deviation 50.2 fL (36.4-46.3); Red Blood Count 4.88 M/uL (4.7-6.1); White Blood Count 13.79 K/uL (4.8-10.8)
[2020-07-24] MEDS ORDERED: CETIRIZINE HCL 10 MG TABLET PO ONE (13:30)
[2020-07-24 14:00] LABS: Albumin Level 3.4 gm/dl (3.4-5.0); BUN Creatinine Ratio 8.7 (10-20); Bilirubin Direct 0.4 mg/dl (0-0.2); Calcium 7.7 mg/dl (8.5-10.1); Creatinine Clr Calc Pharmacy 108.3 ml/min; Est GFR (African American) 104.9 ml/min; Est GFR (Non-African American) 90.5 ml/min; Potassium 4.3 mmol/L (3.5-5.1)
[2020-07-24 14:02] LABS: Bilirubin,Total 1.4 mg/dl (0.2-1); Total Protein 6.3 gm/dl (6.4-8.2)
[2020-07-24] MEDS ORDERED: CALCIUM GLUCONATE 10% 1,000 MG in SODIUM CHLORIDE 0.9% 50 ML IV ONE (14:30)
[2020-07-24 14:41] LABS: Basophils # (auto) 0.01 K/uL (0-0.2); Basophils % (auto) 0.1 %; Eosinophils # (auto) 0.03 K/uL (0-0.5); Eosinophils % (auto) 0.2 %; Immature Granulocytes # (auto) 0.04 K/uL (0.00-0.02); Immature Granulocytes % (auto) 0.3 %; Lymphocytes # (auto) 1.22 K/uL (1.2-3.4); Lymphocytes % (auto) 9.3 %; Monocytes # (auto) 1.37 K/uL (0.11-0.59); Monocytes % (auto) 10.5 %; Neutrophils # (auto) 10.41 K/uL (1.4-6.5); Neutrophils % (auto) 79.6 %
--- NOTE | 2020-07-24 15:11 | XRay Report ---
SINGLE VIEW CHEST CLINICAL HISTORY: Cough. FINDINGS: An AP, portable, upright chest radiograph is compared to study dated 07/16/2020. The cardiom ediastinal silhouette is unremarkable. There are low lung volumes with mild elevation of the right he midiaphragm. Dependent opacities are present at both lung bases. No large pleural effusion or pneumot horax is seen. The bony thorax is grossly intact. IMPRESSION: Low lung volumes with bibasilar airspace opacities which likely represent atelectasis. C orrelate clinically for evidence of a superimposed infectious/inflammatory pneumonitis. ACT 112: Negative or not required by law. Electronically signed by: Abdullahi Renner M.D. 07/24/2020 3:10 PM
[2020-07-24] MEDS: AMOXICILLIN/CLAVULANATE 875 MG TAB PO SCH (17:51)
[2020-07-24] MEDS: ALBUT/IPRATROP 3MG/0.5MG NEB 3 ML VIAL NEB SCH ×2 (19:32→23:22)
[2020-07-24] MEDS ORDERED: SIMETHICONE 80 MG CHEW PO PRN (20:14)
[2020-07-25] MEDS: LACTATED RINGER'S 1,000 ML IV SCH (01:28)
[2020-07-25] MEDS: ALBUT/IPRATROP 3MG/0.5MG NEB 3 ML VIAL NEB SCH (03:33)
[2020-07-25 05:49] LABS: Basophils # (auto) 0.01 K/uL (0-0.2); Basophils % (auto) 0.1 %; Eosinophils # (auto) 0.06 K/uL (0-0.5); Eosinophils % (auto) 0.7 %; Hematocrit (blood only) 41.3 % (42-52); Hemoglobin 13.4 g/dL (14.0-18.0); Immature Granulocytes # (auto) 0.03 K/uL (0.00-0.02); Immature Granulocytes % (auto) 0.3 %; Lymphocytes # (auto) 1.37 K/uL (1.2-3.4); Lymphocytes % (auto) 15.9 %; Mean Corpuscular Hemoglobin 28.3 pg (25-34); Mean Corpuscular Hgb Conc 32.4 g/dL (32-36); Mean Corpuscular Volume 87.1 fL (80-100); Mean Platelet Volume 9.4 fL (7.4-10.4); Monocytes # (auto) 0.96 K/uL (0.11-0.59); Monocytes % (auto) 11.1 %; Neutrophils # (auto) 6.21 K/uL (1.4-6.5); Neutrophils % (auto) 71.9 %; Platelet Count 170 K/uL (130-400); RDW Coefficient of Variation 15.7 % (11.5-14.5); RDW Standard Deviation 50.3 fL (36.4-46.3); Red Blood Count 4.74 M/uL (4.7-6.1); White Blood Count 8.64 K/uL (4.8-10.8)
[2020-07-25 06:16] LABS: Albumin Level 3.3 gm/dl (3.4-5.0); BUN Creatinine Ratio 6.8 (10-20); Bilirubin Direct 0.4 mg/dl (0-0.2); Bilirubin,Total 1.4 mg/dl (0.2-1); Calcium 8.1 mg/dl (8.5-10.1); Creatinine Clr Calc Pharmacy 130.5 ml/min; Est GFR (Non-African American) 111.3 ml/min; Potassium 3.7 mmol/L (3.5-5.1); Total Protein 6.2 gm/dl (6.4-8.2)
[2020-07-25 06:36] LABS: Estimated Average Glucose 111 mg/dl; Hemoglobin A1C 5.5 % (4.5-5.6)
[2020-07-25] MEDS: LANSOPRAZOLE 30 MG SOLTAB PO SCH (08:49)
[2020-07-25] MEDS: AMOXICILLIN/CLAVULANATE 875 MG TAB PO SCH ×2 (08:49→17:28)
[2020-07-25] MEDS: PANTOprazole 40 MG TAB PO SCH (08:50)
[2020-07-25] MEDS: oxyCODONE HCL IR 5 MG TAB (IMMEDIATE RELEASE) PO PRN ×4 (08:53→22:29)
--- NOTE | 2020-07-25 09:57 | Urology Progress Note ---
Date of Service July 25, 2020 Assessment & Plan (1) Adrenal mass, right: Postop day #2 status post right adrenalectomy LFTs have improvedtrending towards baseline Creatinine excellent Hemoglobin stable Low KAT output Subjectively doing quite well He has asked about discharge home and I think he is stable We will plan for KAT removal and discharge home after he is ambulated in the hallway and eaten lunch Admission and Anticipated Discharge Date Admission Date: July 23, 2020 Subjective Feeling much better today Has been ambulating around his room Tolerating a diet Mild pain Voiding well Physical Exam Physical Exam: Incisions appropriate, KAT serosanguineous Abdomen soft Results & Data ([facility]) Vital Signs (Past 12 Hours) Vital Signs Temp Pulse Resp BP Pulse Ox 07/25/20 07:35 36.8 C 82 18 125/78 95 07/25/20 03:33 18 96 07/24/20 23:22 96 PG Care Time/CCT Total # of Minutes Spent Total Time Spent with Patient: Total time spent is greater than 50% in coordination of care (as documented) at patient's floor/unit and/or counseling patient: Coding Level of Care Code 11663 Subseq Hosp Care Lvl 2 Diagnoses Adrenal mass, right E27.8
--- NOTE | 2020-07-25 10:05 | Hospitalist Progress Note ---
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 POD #2 p Robotic-Assisted Right Laparoscopic Adrenalectomy with resection of retroperitoneal mass including resection of inferior liver edge attached to the mass, extensive lysis of adhesions (Right) - Pankaj Briceno, DO EBL 150cc. KAT drainage decreased Hgb stable Not on steroids prior, not roma syndrome prior -- No s/sx adrenal insufficiency --> Pathology pending --> f/u outpatient -- Management per Urology regarding pain control, abx, IVF LFT elevation TB1.4, AST 171, ALT, ALP wnl-> repeat with improvement of AST/ALT but Tbili remained about the same --> discussed f/u with PCP WBC now wnl --> sent rx for Aumentin for sinusitis to complete course along with zrytec for allergy symptoms (2) Severe obstructive sleep apnea: Sleep study 2019- AHI 12.9 - BIPAP / with backup rate of 14 - Compliance average 53% of time in use - He reports he doesn't really wear this at home. - Instructed patient that with his anesthesia and narcotics while in hospital he needs to wear this at night when sleeping and when napping in house, as this could lead to obstruction and hypoventilation/hypoxia/. He verbalized he understood and will wear it. - Lungs clear on auscultation no stridor Only able to tolerate for short period of time. --Also likely with allergies, and did not take Zyrtec as in subjective he had not tried in past when prescribed with the Prevacid. Discussed continuing at d/c and sent rx for Protonix (3) Hypertension: Not on agents as outpatient- follow trends in house --> improved with pain control Stable (4) Hyperlipemia: Reports no medication at home - Follow with PCP (5) History of ETOH abuse: Review of records show prior ETOH use 3-5 nights per week multiple drinks - says he drinks 3-5 drinks per week now - AAWS with Ativan >6 tiered for withdraw No s/sx withdrawal (6) GERD (gastroesophageal reflux disease): Present but controlled for the most part --> consider switch Prevacid to Protonix at d/c. sent rx at d/c ordered dose of Zyrtec and discussed allergies with improvement and to continue sinusitis --> covering with augmentin. complete 5 day course (7) Elevated liver enzymes: improving as above f/u with PCP rec'd (8) Sinusitis: Augmentin started 07/24 and will continue to complete 5 day course Thank you for allowing hospitalist service to participate in the care of Mr Tolliver. Hospitalist service will sign off. Admission and Anticipated Discharge Date Admission Date: July 23, 2020 Supervising Physician Co-Signing Physician Notes PA Supervision Note: I did not personally see or examine the patient today, but I verified all acuna points of JENNIFER Hightower's assessment and plan with the following exceptions/additions: None Subjective Evaluated this morning. Feeling better. Less congestion. Discussed continued Augmentin and zyrtec. LFTs improving, to follow up with PCP. Pain controlled. Hopeful for KAT drain removal after lunch and discharge home after. Review of Systems Review of Systems: All systems reviewed & are unremarkable except as noted in HPI & below Physical Exam Physical Exam: PHYSICAL EXAM: General: awake, alert, no apparent distress, sitting up in bed eating breakfast Head: Normocephalic, atraumatic ENT: PERRL, EOMI, mmm, post-nasal drip. Mallampati II, thick neck Chest: equal rise and fall of the chest, no accessory muscle use, no heaves or thrills, Clear to auscultation, on room air, Cardiac: Regular rate and rhythm, S1S2, skin warm dry, cap refill <3 seconds, peripheral pulses +2 no JVD, no murmur, no JVD, no edema GI: +BS, soft, tender to palpation right anterior, laparoscopic, sites covered with no strikethrough or surrounding hematoma/ecchymosis, KAT drain ~10cc bloody drainage : NO SONG Extremities: Normal inspection, no peripheral edema or erythema, calfs nontender to palpation Neuro: AAO x 3, speech clear and appropriate, strength intact bilaterally 5/5, sensation intact and equal all extremities and dermatomes, no pronator drift Psych: AOx3, euthymic Skin: no rash or erythema Results & Data Results & Data ([facility]) Vital Signs (Past 12 Hours) Vital Signs Temp Pulse Resp BP Pulse Ox 07/25/20 07:35 36.8 C 82 18 125/78 95 07/25/20 03:33 18 96 07/24/20 23:22 96 Laboratory Results 07/25/20 07/25/20 07/25/20 Range/Units 05:33 05:33 05:33 WBC 8.64 (4.8-10.8) K/uL RBC 4.74 (4.7-6.1) M/uL Hgb 13.4 L (14.0-18.0) g/dL Hct 41.3 L (42-52) % MCV 87.1 (80-100) fL MCH 28.3 (25-34) pg MCHC 32.4 (32-36) g/dL RDW Std Deviation 50.3 H (36.4-46.3) fL RDW Coeff of Ele 15.7 H (11.5-14.5) % Plt Count 170 (130-400) K/uL MPV 9.4 (7.4-10.4) fL Immature Gran % (Auto) 0.3 % Neut % (Auto) 71.9 % Lymph % (Auto) 15.9 % [place] % (Auto) 11.1 % Eos % (Auto) 0.7 % Baso % (Auto) 0.1 % Neut # (Auto) 6.21 (1.4-6.5) K/uL Lymph # (Auto) 1.37 (1.2-3.4) K/uL [place] # (Auto) 0.96 H (0.11-0.59) K/uL Eos # (Auto) 0.06 (0-0.5) K/uL Baso # (Auto) 0.01 (0-0.2) K/uL Immature Gran # (Auto) 0.03 H (0.00-0.02) K/uL Sodium 138 (136-145) mmol/L Potassium 3.7 (3.5-5.1) mmol/L Chloride 102 (98-107) mmol/L Carbon Dioxide 29 (21-32) mmol/L Anion Gap 7.0 (3-11) BUN 6 L (7-18) mg/dl Creatinine 0.88 (0.6-1.4) mg/dl Est Cr Clr Drug Dosing 130.5 ml/min Est GFR ( Amer) 129.0 ml/min Est GFR (Non-Af Amer) 111.3 ml/min BUN/Creatinine Ratio 6.8 L (10-20) Glucose 116 H (70-99) mg/dl Estimat Average Glucose 111 mg/dl Hemoglobin A1c 5.5 (4.5-5.6) % Calcium 8.1 L (8.5-10.1) mg/dl Total Bilirubin 1.4 H (0.2-1) mg/dl Direct Bilirubin 0.4 H (0-0.2) mg/dl AST 80 H (15-37) U/L ALT 115 H (12-78) U/L Alkaline Phosphatase 43 L (45-117) U/L Total Protein 6.2 L (6.4-8.2) gm/dl Albumin 3.3 L (3.4-5.0) gm/dl 07/24/20 07/24/20 Range/Units 13:09 13:09 WBC 13.79 H (4.8-10.8) K/uL RBC 4.88 (4.7-6.1) M/uL Hgb 14.1 (14.0-18.0) g/dL Hct 42.3 (42-52) % MCV 86.7 (80-100) fL MCH 28.9 (25-34) pg MCHC 33.3 (32-36) g/dL RDW Std Deviation 50.2 H (36.4-46.3) fL RDW Coeff of Ele 15.8 H (11.5-14.5) % Plt Count 223 (130-400) K/uL MPV 9.7 (7.4-10.4) fL Immature Gran % (Auto) 0.3 % Neut % (Auto) 79.6 % Lymph % (Auto) 9.3 % [place] % (Auto) 10.5 % Eos % (Auto) 0.2 % Baso % (Auto) 0.1 % Neut # (Auto) 10.41 H (1.4-6.5) K/uL Lymph # (Auto) 1.22 (1.2-3.4) K/uL [place] # (Auto) 1.37 H (0.11-0.59) K/uL Eos # (Auto) 0.03 (0-0.5) K/uL Baso # (Auto) 0.01 (0-0.2) K/uL Immature Gran # (Auto) 0.04 H (0.00-0.02) K/uL Sodium 138 (136-145) mmol/L Potassium 4.3 (3.5-5.1) mmol/L Chloride 102 (98-107) mmol/L Carbon Dioxide 25 (21-32) mmol/L Anion Gap 11.0 (3-11) BUN 9 (7-18) mg/dl Creatinine 1.06 (0.6-1.4) mg/dl Est Cr Clr Drug Dosing 108.3 ml/min Est GFR ( Amer) 104.9 ml/min Est GFR (Non-Af Amer) 90.5 ml/min BUN/Creatinine Ratio 8.7 L (10-20) Glucose 145 H (70-99) mg/dl Estimat Average Glucose mg/dl Hemoglobin A1c (4.5-5.6) % Calcium 7.7 L (8.5-10.1) mg/dl Total Bilirubin 1.4 H (0.2-1) mg/dl Direct Bilirubin 0.4 H (0-0.2) mg/dl AST 137 H (15-37) U/L ALT 150 H (12-78) U/L Alkaline Phosphatase 48 (45-117) U/L Total Protein 6.3 L (6.4-8.2) gm/dl Albumin 3.4 (3.4-5.0) gm/dl PG Care Time/CCT Total # of Minutes Spent Total Time Spent with Patient: Total time spent is greater than 50% in coordination of care (as documented) at patient's floor/unit and/or counseling patient: Coding Level of Care Code 65919 Subseq Obs Care Lvl 2 Diagnoses Myelolipoma D17.9 Severe obstructive sleep apnea G47.33 Hypertension I10 Hypertension type: essential hypertension Hyperlipemia E78.5 Hyperlipidemia type: unspecified History of ETOH abuse F10.11 GERD (gastroesophageal reflux disease) K21.9 Esophagitis presence: esophagitis presence not specified Elevated liver enzymes R74.8 Sinusitis J32.9 (1) Hyperlipemia Hyperlipidemia type: unspecified Qualified Code(s): E78.5 - Hyperlipidemia, unspecified (2) GERD (gastroesophageal reflux disease) Esophagitis presence: esophagitis presence not specified Qualified Code(s): K21.9 - Gastro-esophageal reflux disease without esophagitis (3) Hypertension Hypertension type: essential hypertension Qualified Code(s): I10 - Essential (primary) hypertension
[2020-07-26] MEDS: oxyCODONE HCL IR 5 MG TAB (IMMEDIATE RELEASE) PO PRN ×3 (04:09→13:27)
[2020-07-26 06:27] LABS: Basophils # (auto) 0.02 K/uL (0-0.2); Basophils % (auto) 0.2 %; Eosinophils % (auto) 2.1 %; Hematocrit (blood only) 44.2 % (42-52); Hemoglobin 14.5 g/dL (14.0-18.0); Immature Granulocytes # (auto) 0.04 K/uL (0.00-0.02); Immature Granulocytes % (auto) 0.4 %; Lymphocytes # (auto) 1.53 K/uL (1.2-3.4); Lymphocytes % (auto) 16.1 %; Mean Corpuscular Hemoglobin 28.9 pg (25-34); Mean Corpuscular Hgb Conc 32.8 g/dL (32-36); Mean Corpuscular Volume 88.2 fL (80-100); Mean Platelet Volume 10.2 fL (7.4-10.4); Monocytes % (auto) 10.5 %; Neutrophils # (auto) 6.72 K/uL (1.4-6.5); Neutrophils % (auto) 70.7 %; Platelet Count 212 K/uL (130-400); RDW Standard Deviation 48.3 fL (36.4-46.3); Red Blood Count 5.01 M/uL (4.7-6.1); White Blood Count 9.51 K/uL (4.8-10.8)
[2020-07-26 07:04] LABS: BUN Creatinine Ratio 7.5 (10-20); Calcium 8.6 mg/dl (8.5-10.1); Creatinine Clr Calc Pharmacy 143.6 ml/min; Est GFR (African American) 134.1 ml/min; Est GFR (Non-African American) 115.7 ml/min; Potassium 4.2 mmol/L (3.5-5.1)
[2020-07-26] MEDS: AMOXICILLIN/CLAVULANATE 875 MG TAB PO SCH (07:26)
[2020-07-26] MEDS: PANTOprazole 40 MG TAB PO SCH (09:20)
--- NOTE | 2020-07-26 10:20 | Urology Progress Note ---
Date of Service July 26, 2020 Assessment & Plan (1) Adrenal mass, right: Status post right adrenalectomy Stable for discharge home Admission and Anticipated Discharge Date Admission Date: July 23, 2020 Subjective Feels much better this morning Ambulatory Tolerating a diet Anxious to go home Physical Exam Physical Exam: Incisions appropriate Drain was removed yesterday, drain site appears healthy Abdomen soft, nontender Results & Data ([facility]) Vital Signs (Past 12 Hours) Vital Signs Temp Pulse Resp BP Pulse Ox 07/26/20 07:00 36.9 C 81 20 106/70 94 07/25/20 23:05 37 C 83 18 113/75 95 PG Care Time/CCT Total # of Minutes Spent Total Time Spent with Patient: Total time spent is greater than 50% in coordination of care (as documented) at patient's floor/unit and/or counseling patient: Coding Level of Care Code 32598 Subseq Hosp Care Lvl 2 Diagnoses Adrenal mass, right E27.8
--- NOTE | 2020-07-29 17:14 | Discharge Summary ---
Date of Service July 29, 2020 Admission HPI Per Admitting Provider See H&P Admission Exam Per Admitting Provider See H&P Principal Diagnosis Retroperitoneal Mass Discharge Exam General: Alert in no acute distress. HEENT: Normocephalic Atraumatic. Inspection normal. Psychologic: Normal affect. Skin: [place] and Dry. No rashes or visible lesions. Abdomen: Soft Non-distended. No rebound or guarding. 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 POD #2 p Robotic-Assisted Right Laparoscopic Adrenalectomy with resection of retroperitoneal mass including resection of inferior liver edge attached to the mass, extensive lysis of adhesions (Right) - Pankaj Briceno, DO EBL 150cc. KAT drainage decreased Hgb stable Not on steroids prior, not roma syndrome prior -- No s/sx adrenal insuff iciency --> Pathology pending --> f/u outpatient -- Management per Urology regarding pain control, abx, IVF LFT elevation TB1.4, AST 171, ALT, ALP wnl-> repeat with improvement of AST/ALT but Tbili remained about the same --> discussed f/u with PCP WBC now wnl --> sent rx for Aumentin for sinusitis to complete course along with zrytec for allergy symptoms (2) Severe obstructive sleep apnea: Sleep study 2019- AHI 12.9 - BIPAP 01/11 with backup rate of 14 - Compliance average 53% of time in use - He reports he doesn't really wear this at home. - Instructed patient that with his anesthesia and narcotics while in hospital he needs to wear this at night when sleeping and when napping in house, as this could lead to obstruction and hypoventilation/hypoxia/. He verbalized he understood and will wear it. - Lungs clear on auscultation no stridor Only able to tolerate for short period of time. --Also likely with allergies, and did not take Zyrtec as in subjective he had not tried in past when prescribed with the Prevacid. Discussed continuing at d/c and sent rx for Protonix Total Time Total Time Spent Total Time Spent (In Minutes): 10 minutes Total Time Includes: Examination of the Patient, Discharge Planning, Medication Reconciliation and Communication With Other Providers Discharge Plan Discharge Items Patient Disposition: Home - Self-Care Reason For Visit: Myelolipoma Discharge Diagnosis: Myelolipoma Activity: Per Instructions section Lifting: No more than 25 pounds Bathing Comment: No tub baths or soaks. Ok to shower after discharge. Sexual Activity: Wait until after follow-up appointment Exercise/Sports: Wait until after follow-up appointment Driving/Machine Use: Do not drive while taking prescription pain medication. Non-emergency contact: Surgeon and Urologist Call non-emergency contact if: you have any medication questions, you have a fever, your temperature is above 101, your wound has increased redness, your wound has increased drainage and your wound pain has increased Follow-up/Referrals: Pankaj Briceno DO [Physician] - [place],[facility] [Primary Care Provider] - Diet: Regular Addtl Attending Provider Instructions: Please take all medications as prescribed and keep all follow-ups as scheduled. Please call our office at [phone] with any questions, concerns or need to reschedule appointments for any reason. We are happy to assist you. The urology office will contact you with the time and date of your postoperative follow-up appointment. Recovering at home: We recommend having someone with you for the first few days after surgery to help care for you. It is okay to shower tomorrow. Please avoid swimming, bathing or using hot tub until incisions are well healed. Avoid driving until you are not requiring pain medication any further. Walk at least a few times a day. Increase your distance, as you feel able. Stairs in your home are okay. Please avoid strenuous or sexual activity until your follow-up. We recommend using stool softener (i.e. Colace) to prevent constipation and straining, especially the first two weeks post operatively. Call [facility] at [phone] if you experience: Chest pain or trouble breathing (call [phone] or go to the hospital). Fever of 101F or higher Symptoms of infection at incision site, including redness or swelling, warmth, or bad-smelling drainage If you have catheter, and you notice: o Bloody urine or drainage that is dark red or has large clots (Please remember a small amount of blood is normal) o No drainage from the catheter for more than 6 hours o The catheter comes out of your bladder Pain that is not controlled with medicines Addtl Drawing Supervisor Provider Instructions: You have been sent medication to take place of Prevacid called Protonix to use for reflux daily. You should also consider daily zyrtec as discussed to help with allergy symptoms and if well controlled then you can continue vs use as needed when allergy symptoms/post nasal drip symptoms occur. You have been started on Augmentin for sinusitis and should complete course of antibiotics as ordered. Please follow up with your primary care provider to monitor your liver enzymes to ensure return to normal on repeat labs. Pending Studies at Discharge: Yes Stand-Alone Forms: My [facility] Style on Screen, Smoking Cessation Medications and DC Order Prescriptions: New pantoprazole 40 mg Tablet,Delayed Release (Dr/Ec) 40 mg PO QAM Qty: 30 RF: 0 docusate sodium [Colace] 100 mg capsule 100 mg PO BID Qty: 30 RF: 0 oxycodone 5 mg tablet 5 mg PO Q8H PRN (Reason: pain) Qty: 7 RF: 0 amoxicillin-pot clavulanate [Augmentin] 875-125 mg Tablet 1 tab PO BIDM 5 Days Qty: 10 RF: 0 Continued (DME) BI-PAP/Supplies Misc See Dose Instructions .ROUTE .MEDSUPPLY Qty: 1 RF: 0 lansoprazole [Prevacid SoluTab] 30 mg Tablet,Disintegrat, Delay Rel 30 mg PO QAM RF: 0 Discharge Orders: Discharge Order (Routine); Ordered 07/25/20 Ordered By: Dusty Laughlin Admission Data Admit Date/Time: 07/23/20 17:42 Attending Provider: Pankaj Briceno Admit Provider: Pankaj Briceno Primary Care Provider: [facility] Other Providers: Ondina Hightower ; Kingston Foss ; Frank Borden ; Quincy Camp ; Sahil Joyner ; Félix Mathew ; Karen Galvan ; Karlie Shi ; Romario Wilkins ; Tracey Bales ; Kelly Enamorado ; Vu Richard ; Bill Patrick ; Edgar Esposito ; Urbano Morrow ; Agnes Dumont ; Dusty Gambino ; Kingston Ziegler ; Ernst Kirkland ; Bev Asencio ; Francisco Chacon ; Darci Patterson Other Interventions: Discharge Summary Assessment (RN) Last Done: 07/25/20 10:38 Coding Level of Care Code D/C Day Management <30 mins Diagnoses Myelolipoma D17.9 Severe obstructive sleep apnea G47.33
== END 2020-07-26 13:52 | disposition home or self-care (01) ==
LOC: ASU 09:47 → INTOOBSV 17:42 → 3E 17:42
DX: R74.8 Abnormal levels of other serum enzymes; I10 Essential (primary) hypertension; R19.09 Other intra-abdominal and pelvic swelling, mass and lump; G47.33 Obstructive sleep apnea (adult) (pediatric); K21.9 Gastro-esophageal reflux disease without esophagitis; E78.5 Hyperlipidemia, unspecified; Z79.899 Other long term (current) drug therapy; F17.210 Nicotine dependence, cigarettes, uncomplicated; J32.9 Chronic sinusitis, unspecified; D17.79 Benign lipomatous neoplasm of other sites

== ENCOUNTER 2020-08-12 17:41 | Observation (INO) ==
--- NOTE | 2020-08-12 19:59 | XRay Report ---
XR chest 1V portable HISTORY: Atypical Chest Pain COMPARISON: Chest 07/31/2020. FINDINGS: Low lung volumes. The lungs are clear. Cardiac silhouette is normal in size. No pleural eff usions. No pneumothorax. IMPRESSION: No acute process. ACT 112: Negative or not required by law. Electronically signed by: Sebastian Fernandez M.D. 08/12/2020 7:58 PM
--- NOTE | 2020-08-12 20:07 | Emergency Department Note ---
Impression & Plan Precordial chest pain, Pleuritic chest pain, Leukocytosis, Adrenal hematoma ED Provider Note NAME: TEA JOSHUA AGE: 34 SEX: M : 1985 ARRIVES VIA: Walk-In INFORMANT: [Patient] ED PROVIDER(S): [Abdullahi Gomez MD] CHIEF COMPLAINT: Chest pain HISTORY OF PRESENT ILLNESS: The patient presents to the ED with central chest pain that has been present all day. The pain is a 4 or so on a scale of 1-10. It is pressure-like and worsens with a deep breath. He does not feel short of breath. He feels though like he has to take some deep breaths at times. He has noticed some pain in his shoulders intermittently as well. No cough or fever. No recent chest trauma. The patient did have a right adrenal lesion removed on the , just under a month ago. He states he has seen his surgeon in follow-up and is doing well from this procedure. The patient has no known issues with his heart or lungs. REVIEW OF SYSTEMS: See HPI for pertinent positives and negatives. A total of ten systems were reviewed and were otherwise negative. PMHx/PSHx: See Below SOCIAL HISTORY: See Below. PHYSICAL EXAM: GENERAL: Patient is in no acute distress. HEENT: No acute trauma, normocephalic atraumatic, mucous membranes moist, no nasal congestion, no scleral icterus. NECK: No stridor, no adenopathy, no meningismus, trachea is midline. LUNGS: Clear to auscultation bilaterally, no wheeze, no rhonchi, breath sounds equal. Chest: Tender across the anterior lower central chest wall. HEART: Mildly tachycardic, regular rhythm, no murmurs. ABDOMEN: Soft, tender over his surgical incision although there is no warmth or erythema, bowel sounds positive, no hernias, no peritonitis. EXTREMITIES: No cyanosis or edema, full range of motion of all the joints without pain or difficulty, no signs for acute trauma. NEUROLOGIC: Oriented x 3, no acute motor or sensory deficits, no focal weakness. SKIN: No rash, no jaundice, no diaphoresis. DIFFERENTIAL DIAGNOSIS: Cardiac ischemia, aortic dissection, pulmonary embolism, pneumothorax, pneumonia, pericarditis, myocarditis, esophageal rupture, GERD, cholecystitis, pancreatitis, musculoskeletal, as well as other pathologies. EMERGENCY DEPARTMENT COURSE/PROCEDURES: ECG: Indication was chest pain. The ECG shows a normal sinus rhythm with a rate of 91. There is no ST elevation, no PVCs. The QTc is 420. Continuous Cardiac Monitoring: An order was placed for continuous cardiac monitoring. The monitor shows a rate of 105 with sinus tachycardia. MEDICAL DECISION MAKING: There is a moderate leukocytosis at 17,000, this could be consistent with infection or his pain. There is a normal hemoglobin. Platelet count somewhat elevated at 541. No coagulopathy. D-dimer was quite elevated at over 3000. Certainly, this makes pulmonary embolism more likely. There was no significant electrolyte abnormality or kidney failure. There were some subtle liver enzyme elevations. No evidence for pancreatitis. ECG showed a sinus rhythm, no acute ischemia. Cardiac enzyme testing x1 is not consistent with acute cardiac injury. Chest x-ray does not show mediastinal widening, pneumonia or pneumothorax. Chest CT does not show PE. There was some atelectasis/consolidation at the right base with a small pleural effusion. A right adrenal hematoma was seen although, possibly smaller than seen on his last CT. The patient received IV Toradol for pain. He was given IV saline for hydration. This is the patient's second visit for issues with chest pain/pleuritic discomfort. Today, his white count is elevated. I did speak with urology. The patient is being hospitalized. Certainly, the findings on CT could explain his pleuritic discomfort. There is concern for developing abscess though with the white blood cell count rise. The patient is aware of his findings, case management has been involved. Chelsea burk is doing the admission. 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 2 > "grew out of"/no issues since Hyperlipemia no meds Hypertension no meds Myelolipoma JAD (obstructive sleep apnea) Non-compliant with CPAP Seasonal allergies Surgical History History of appendectomy History of colonoscopy Family History Other Hypertension Social History Smoking Status: Never smoker Tobacco Type: Cigarettes Cigarettes Per Day: 10 cigs per day; Second Hand Exposure: No; Hx Alcohol Use: Yes Alcohol type: hard liquor Alcohol Intake Frequency Comment: 5 times a week, 4 drinks at least up to 12 drinks Hx Substance Use: Yes Preferred Language: Nepalese Communication Ability: Effective 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 Required: No Beliefs That Will Affect Care: None Current Living Situation: Alone Feels Safe at Home: Yes Assistive Devices: None Allergies Allergies Allergy/AdvReac Type Severity Reaction Status Date / Time No Known Allergies Allergy Verified 08/12/20 19:49 Home Meds Home Medications Medication Instructions Recorded Confirmed cetirizine [Zyrtec] 10 mg PO QAM 07/31/20 08/12/20 Previous Rx's Medication Instructions Recorded miscellaneous medical supply #1 ea 10/29/18 pantoprazole 40 mg PO QAM #30 tab 07/24/20 Results & Data (ED) Vital Signs Vital Signs - 24 hr 08/12/20 17:43 08/12/20 19:42 08/12/20 20:30 Temperature 37.0 C Temperature Source Oral Pulse Rate 105 H Pulse Rate [Finger] 104 H Pulse Rhythm Regular Pulse Rhythm [Finger] Pulse Strength Normal Pulse Strength [Finger] Respiratory Rate 16 18 Respiratory Effort / Characteristics Non-Labored Non-Labored Respiratory Depth Normal Normal Respiratory Pattern Regular Regular Blood Pressure 124/90 Blood Pressure [Right Arm] 147/70 H Blood Pressure Mean 101 Blood Pressure Mean [Right Arm] 95 Blood Pressure Position Sitting Pulse Oximetry 98 99 Oxygen Delivery Method Room Air Room Air Sepsis Recent Fever Within 48 Hours No Sepsis New/Unexplained Change in Mental Status N/A Sepsis Action Taken by Nursing No Action Required 08/12/20 22:00 Temperature Temperature Source Pulse Rate Pulse Rate [Finger] 90 Pulse Rhythm Pulse Rhythm [Finger] Regular Pulse Strength Pulse Strength [Finger] Normal Respiratory Rate 18 Respiratory Effort / Characteristics Non-Labored Respiratory Depth Normal Respiratory Pattern Regular Blood Pressure Blood Pressure [Right Arm] 149/92 H Blood Pressure Mean Blood Pressure Mean [Right Arm] 111 Blood Pressure Position Pulse Oximetry 99 Oxygen Delivery Method Room Air Sepsis Recent Fever Within 48 Hours Sepsis New/Unexplained Change in Mental Status Sepsis Action Taken by [facility] Medications Current Medication List: was personally reviewed by me Laboratory Data Attestation: I reviewed the patient's lab results. Result diagrams: 08/12/20 20:39 08/12/20 20:39 Lab Results 07/08/2608/12/20 08/12/20 Range/Units 20:39 20:39 20:39 WBC 17.49 H (4.8-10.8) K/uL RBC 5.29 (4.7-6.1) M/uL Hgb 15.1 (14.0-18.0) g/dL Hct 45.3 (42-52) % MCV 85.6 (80-100) fL MCH 28.5 (25-34) pg MCHC 33.3 (32-36) g/dL RDW Std Deviation 43.3 (36.4-46.3) fL RDW Coeff of Ele 13.9 (11.5-14.5) % Plt Count 541 H (130-400) K/uL MPV 9.6 (7.4-10.4) fL Immature Gran % (Auto) 0.6 % Neut % (Auto) 79.1 % Lymph % (Auto) 7.0 % [place] % (Auto) 7.5 % Eos % (Auto) 5.3 % Baso % (Auto) 0.5 % Neut # (Auto) 13.83 H (1.4-6.5) K/uL Lymph # (Auto) 1.22 (1.2-3.4) K/uL [place] # (Auto) 1.32 H (0.11-0.59) K/uL Eos # (Auto) 0.93 H (0-0.5) K/uL Baso # (Auto) 0.08 (0-0.2) K/uL Immature Gran # (Auto) 0.11 H (0.00-0.02) K/uL PT 10.1 (9.0-12.0) Seconds INR 1.0 (0.9-1.1) APTT 27.1 (21.0-31.0) Seconds PTT Ratio 1.0 D-Dimer 3290 H* (0-500) ug/L FEU Sodium 137 (136-145) mmol/L Potassium 4.0 (3.5-5.1) mmol/L Chloride 100 (98-107) mmol/L Carbon Dioxide 30 (21-32) mmol/L Anion Gap 7.0 (3-11) BUN 13 (7-18) mg/dl Creatinine 0.96 (0.6-1.4) mg/dl Est Cr Clr Drug Dosing 121.4 ml/min Est GFR ( Amer) 118.2 ml/min Est GFR (Non-Af Amer) 102.0 ml/min BUN/Creatinine Ratio 13.1 (10-20) Glucose 127 H (70-99) mg/dl Calcium 9.5 (8.5-10.1) mg/dl Total Bilirubin 0.5 (0.2-1) mg/dl AST 42 H (15-37) U/L ALT 101 H (12-78) U/L Alkaline Phosphatase 114 (45-117) U/L Troponin I < 0.015 (0-0.045) ng/ml Total Protein 8.3 H (6.4-8.2) gm/dl Albumin 3.9 (3.4-5.0) gm/dl Globulin 4.4 H (2.5-4.0) gm/dl Albumin/Globulin Ratio 0.9 (0.9-2) Lipase 203 (73-393) U/L Administered Medications Discontinued Medications Sodium Chloride (Nss 1000ml) 500 mls @ 999 mls/hr IV .Q31M ONE Stop: 08/12/20 22:09 Last Infusion: 08/12/20 22:33 Dose: 0 mls/hr Documented by: [id number] Admin: 08/12/20 21:45 Dose: 999 mls/hr Documented by: [id number] Ketorolac Tromethamine (Ketorolac Tromethamine 15 Mg/Ml Vial) 15 mg IV NOW STA Stop: 08/12/20 21:39 Last Admin: 08/12/20 21:45 Dose: 15 mg Documented by: [id number] Imaging Data Radiologist's Impression: Chest X-Ray 08/12/20 19:30 XR chest 1V portable HISTORY: Atypical Chest Pain COMPARISON: Chest 07/31/2020. FINDINGS: Low lung volumes. The lungs are clear. Cardiac silhouette is normal in size. No pleural effusions. No pneumothorax. IMPRESSION: No acute process. ACT 112: Negative or not required by law. Electronically signed by: Sebastian Fernandez M.D. 08/12/2020 7:[address] for PE: There is no pulmonary embolus. There is a small right pleural effusion with some atelectasis/consolidation. There is a partially visualized mass measuring about 7.3 cm arising from the adrenal gland, suprarenal region of the right lobe of the liver. There is some associated vascularity and adjacent fluid or thickening. Differential could include a fluid collection or hematoma with vascular blushes. Discharge Plan Visit Data Chief Complaint: Chest Pain Stated Complaint: CHEST PAIN, ADRENALECTOMY ON 07/23 ED Provider: Abdullahi Gomez Discharge Problem: Precordial chest pain, Pleuritic chest pain, Leukocytosis, Adrenal hematoma Patient Disposition: Admitted As Inpatient Condition: Fair Forms Stand Alone Forms: [facility] [employer] Prescriptions Prescriptions: No Action (DME) BI-PAP/Supplies Misc See Dose Instructions .ROUTE .MEDSUPPLY Qty: 1 RF: 0 pantoprazole 40 mg Tablet,Delayed Release (Dr/Ec) 40 mg PO QAM Qty: 30 RF: 0 cetirizine [Zyrtec] 10 mg Tablet 10 mg PO QAM RF: 0 Referrals Referrals: [place] [Primary Care Provider] - Discharge Problem: Leukocytosis Qualifiers: Leukocytosis type: unspecified Qualified Code(s): D72.829 - Elevated white blood cell count, unspecified Adrenal hematoma Qualifiers: Encounter type: subsequent encounter Qualified Code(s): S37.812D - Contusion of adrenal gland, subsequent encounter
[2020-08-12 20:55] LABS: Basophils # (auto) 0.08 K/uL (0-0.2); Basophils % (auto) 0.5 %; Eosinophils # (auto) 0.93 K/uL (0-0.5); Eosinophils % (auto) 5.3 %; Hematocrit (blood only) 45.3 % (42-52); Hemoglobin 15.1 g/dL (14.0-18.0); Immature Granulocytes # (auto) 0.11 K/uL (0.00-0.02); Immature Granulocytes % (auto) 0.6 %; Lymphocytes # (auto) 1.22 K/uL (1.2-3.4); Mean Corpuscular Hemoglobin 28.5 pg (25-34); Mean Corpuscular Hgb Conc 33.3 g/dL (32-36); Mean Corpuscular Volume 85.6 fL (80-100); Mean Platelet Volume 9.6 fL (7.4-10.4); Monocytes # (auto) 1.32 K/uL (0.11-0.59); Monocytes % (auto) 7.5 %; Neutrophils # (auto) 13.83 K/uL (1.4-6.5); Neutrophils % (auto) 79.1 %; Platelet Count 541 K/uL (130-400); RDW Coefficient of Variation 13.9 % (11.5-14.5); RDW Standard Deviation 43.3 fL (36.4-46.3); Red Blood Count 5.29 M/uL (4.7-6.1); White Blood Count 17.49 K/uL (4.8-10.8)
[2020-08-12 21:12] LABS: Alanine Aminotransferase 101 U/L (12-78); Albumin Level 3.9 gm/dl (3.4-5.0); Aspartate Aminotransferase 42 U/L (15-37); BUN Creatinine Ratio 13.1 (10-20); Blood Urea Nitrogen 13 mg/dl (7-18); Calcium 9.5 mg/dl (8.5-10.1); Carbon Dioxide 30 mmol/L (21-32); Chloride 100 mmol/L (98-107); Creatinine Clr Calc Pharmacy 121.4 ml/min; Est GFR (African American) 118.2 ml/min; Glucose 127 mg/dl (70-99); Lipase 203 U/L (73-393); Sodium 137 mmol/L (136-145)
[2020-08-12 21:17] LABS: Albumin Globulin Ratio 0.9 (0.9-2); Alkaline Phosphatase 114 U/L (45-117); Bilirubin,Total 0.5 mg/dl (0.2-1); Globulin 4.4 gm/dl (2.5-4.0); Total Protein 8.3 gm/dl (6.4-8.2); Troponin I < 0.015 ng/ml (0-0.045)
[2020-08-12 21:29] LABS: Partial Thromboplastin Time 27.1 Seconds (21.0-31.0); Prothrombin Time 10.1 Seconds (9.0-12.0)
[2020-08-12] MEDS ORDERED: KETOROLAC TROMETHAMINE 15 MG/ML VIAL IV STA (21:38)
[2020-08-12] MEDS ORDERED: SODIUM CHLORIDE 0.9% 1000ML 500 ML IV ONE (21:39)
[2020-08-12 21:56] LABS: D Dimer 3290 ug/L FEU (0-500)
--- NOTE | 2020-08-12 23:32 | History & Physical Report ---
Date of Service August 12, 2020 Assessment & Plan (1) Adrenal hematoma: Due to the patient's noted pleuritic chest pain and elevated white blood cell count along with the fluid collection noted at the surgical site will admit him in the hospital for observation. We will proceed as follows: I suspect his pleuritic chest pain may be related to diaphragm irritation from the noted fluid collection. We will continue analgesics. It is unclear if the noted fluid collection on CT scan represents a seroma or hematoma. It is also unclear if this fluid may be infected as the patient now has a leukocytosis. As the patient is afebrile and does not have shakes, chills, or rigors we are merely repeat his CBC in the morning. If the patient's white blood cell count remains persistently elevated or is higher we will consider placing the patient on antibiotics as the fluid may represent an infected fluid collection. If this is the case consideration may be given to obtaining a percutaneous aspirate for fluid culture. I have outlined the above measures with the patient and he is in agreement. Patient will be a level 1 full code We will use SCDs for DVT prevention. I will withhold chemical means for the present time until we are certain whether or not the patient required any procedural intervention. History of Present Illness Chief Complaint: Pleuritic chest pain Primary Care Provider: [facility] This is a 34-year-old male presented to [facility] emergency department this evening secondary to pleuritic chest pain. Patient is well-known to the urology service. On July [address] Briceno performed a robotic assisted right laparoscopic adrenalectomy with resection of a retroperitoneal mass including a resection of the inferior liver edge which was attached to the mass and extensive lysis of adhesions. The pathology from this procedure was reviewed and the mass that was removed was consistent with a mild lipoma. The patient was in the hospital from July 23 to July 25 at which time he was discharged. Patient was seen in the urology office on July 26 and was noted to be doing well however he did report to the emergency department on July 31 secondary to postoperative pain. On July 31 the patient did undergo a CT angiogram of the chest at which time no pulmonary emboli were identified. Patient was noted to have a 9.0 x 6.2 cm postoperative fluid collection at the area of surgery. This was felt to be either a seroma or possible hematoma. The patient was able to be discharged home from that visit in the emergency department. Patient was doing reasonably well until earlier today he noted that he was having some chest pain that was pleuritic in nature located in the center of his chest. He notes the pain is worse with deep inspirations. He does not note any palliative factors other than Toradol that was administered in the emergency department. He does note that the pain does radiate somewhat to his right shoulder. He denies any fevers, shakes, chills. He denies any cough or shortness of breath. The patient does note some minor incisional pain at his previous surgical sites. He has not had any nausea or vomiting or diarrhea. He notes he has not had any change in his appetite. He denies any dysuria. Today in the emergency department the patient is noted to be afebrile. He did have a chest x-ray that showed no evidence of pneumonia or CHF. He also underwent a CT scan of the chest which did not identify any pulmonary emboli. He was noted to have a small right pleural effusion. The previously noted fluid collection was still present but was decreased in size to approximately 7.3 cm. In addition he did have labs which included a white blood cell count of 17.4. It is noteworthy mention that this is a significant elevation from previous values which were noted to be within normal range at the a forementioned emergency department visit. The remainder of his CBC showed his hemoglobin and hematocrit were within normal range. His platelet count was slightly elevated at 541,000. He was noted to have an elevated D-dimer at 3290. Chemistry profile showed his sodium, potassium, BUN, and creatinine were all within normal range. He was noted to have slight elevation of his LFTs with an AST of 42 and an ALT of 101. These LFTs were noted to be decreased from values that were checked previously. At the time of my interview the patient had just received some Toradol in the emergency department which had markedly improved proved his pain and he was comfortable in no distress. Allergies Allergy/AdvReac Type Severity Reaction Status Date / Time No Known Allergies Allergy Verified 08/12/20 19:49 Home Medications Medication Instructions Recorded Confirmed Type miscellaneous medical supply #1 ea 10/29/18 07/30/20 Rx pantoprazole 40 mg PO QAM #30 tab 07/24/20 08/12/20 Rx cetirizine [Zyrtec] 10 mg PO QAM 07/31/20 08/12/20 History 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 2 > "grew out of"/no issues since Hyperlipemia no meds Hypertension no meds Myelolipoma JAD (obstructive sleep apnea) Non-compliant with CPAP Seasonal allergies Surgical History History of appendectomy History of colonoscopy Family History Other Hypertension Social History Smoking Status: Never smoker Tobacco Type: Cigarettes Cigarettes Per Day: 10 cigs per day; Second Hand Exposure: No; Hx Alcohol Use: Yes Alcohol type: hard liquor Alcohol Intake Frequency Comment: 5 times a week, 4 drinks at least up to 12 drinks Hx Substance Use: Yes Preferred Language: Icelandic Communication Ability: Effective Final Inspector Movement Assembly Required: No Beliefs That Will Affect Care: None Current Living Situation: Alone Feels Safe at Home: Yes Assistive Devices: None Review of Systems Constitutional: no fever and no chills Eyes: no diplopia Ear, Nose, Mouth, Throat: no ear pain Respiratory: + pain on inspiration; no cough and no dyspnea Cardiovascular: + chest pain (Pleuritic chest pain worse with inspiration as noted in HPI) Gastrointestinal: + abdominal pain (Minor abdominal pain located at surgical incisions); no nausea and no vomiting Genitourinary: no dysuria Musculoskeletal: no back pain Integumentary: no rash Neurologic: no localized weakness Physical Exam Constitutional: well developed and well nourished; no acute distress Eyes: no conjunctival abnormality ENMT: Ears: no hearing impairment Neck: trachea midline Respiratory: normal respiratory effort; no respiratory distress and no labored breathing Cardiovascular: Rate/Rhythm: regular rate and regular rhythm Gastrointestinal (Abdomen): Abdomen soft and nondistended with positive bowel sounds. There is no rebound tenderness or guarding. Patient surgical incisions were examined and they were all noted to be clean dry and intact without any surrounding erythema or drainage. There is minor palpation noted near his surgical incisions. Musculoskeletal: No calf tenderness Skin: no rashes, warm and dry Neurologic: moves all extremities Psychiatric: A+Ox3, euthymic affect Results & Data Results & Data ([facility]) Vital Signs (Past 12 Hours) Vital Signs Temp Pulse Pulse Resp BP BP Pulse Ox 08/12/20 22:00 90 18 149/92 H 99 08/12/20 19:42 104 H 18 147/70 H 99 08/12/20 17:43 37.0 C 105 H 16 124/90 98 PG Care Time/CCT Total # of Minutes Spent Total Time Spent with Patient: Total time spent is greater than 50% in coordination of care (as documented) at patient's floor/unit and/or counseling patient: Coding Level of Care Code 96970 OBS Care - Level 3 Diagnoses Adrenal hematoma S37.812D Encounter type: subsequent encounter (1) Adrenal hematoma Encounter type: subsequent encounter Qualified Code(s): S37.812D - Contusion of adrenal gland, subsequent encounter
[2020-08-13] MEDS ORDERED: ACETAMINOPHEN 325 MG TAB PO PRN (01:58)
[2020-08-13] MEDS ORDERED: ONDANSETRON INJ 2 MG/ML 2 ML VIAL IV PRN (01:58)
[2020-08-13] MEDS ORDERED: KETOROLAC TROMETHAMINE 15 MG/ML VIAL IV PRN (01:58)
[2020-08-13 06:30] LABS: Basophils # (auto) 0.05 K/uL (0-0.2); Basophils % (auto) 0.4 %; Eosinophils # (auto) 0.88 K/uL (0-0.5); Eosinophils % (auto) 7.3 %; Hematocrit (blood only) 39.8 % (42-52); Hemoglobin 13.3 g/dL (14.0-18.0); Immature Granulocytes # (auto) 0.07 K/uL (0.00-0.02); Immature Granulocytes % (auto) 0.6 %; Lymphocytes # (auto) 1.53 K/uL (1.2-3.4); Lymphocytes % (auto) 12.8 %; Mean Corpuscular Hemoglobin 28.4 pg (25-34); Mean Platelet Volume 9.5 fL (7.4-10.4); Monocytes # (auto) 1.56 K/uL (0.11-0.59); Neutrophils # (auto) 7.89 K/uL (1.4-6.5); Neutrophils % (auto) 65.9 %; Platelet Count 483 K/uL (130-400); RDW Coefficient of Variation 13.8 % (11.5-14.5); RDW Standard Deviation 43.3 fL (36.4-46.3); Red Blood Count 4.68 M/uL (4.7-6.1); White Blood Count 11.98 K/uL (4.8-10.8)
[2020-08-13 06:31] LABS: Mean Corpuscular Hgb Conc 33.4 g/dL (32-36)
[2020-08-13 06:47] LABS: BUN Creatinine Ratio 12.6 (10-20); Calcium 8.6 mg/dl (8.5-10.1); Creatinine Clr Calc Pharmacy 114.2 ml/min; Est GFR (African American) 109.9 ml/min; Est GFR (Non-African American) 94.8 ml/min; Potassium 3.6 mmol/L (3.5-5.1)
--- NOTE | 2020-08-13 08:19 | CT Scan Report ---
CT ANGIOGRAM OF THE CHEST CLINICAL HISTORY: Atypical chest pain. COMPARISON STUDY: Chest x-ray dated 08/12/2020. Chest CT dated 07/31/2020. Abdominal CT dated 06/01/2020 . TECHNIQUE: Following the IV administration of 119 cc of Optiray 320, CT angiogram of the chest was pe rformed from the upper abdomen to the thoracic inlet utilizing the pulmonary embolus protocol. Images are reviewed in the axial, sagittal, and coronal planes. 3-D MIPS images are created and assessed. I V contrast was administered without complication. A dose lowering technique was utilized adhering to the principles of ALARA. CT DOSE: 568.95 mGy.cm FINDINGS: Thyroid: Imaged portions of the thyroid gland are normal in size and attenuation. Thoracic aorta: The thoracic aorta is normal in caliber and demonstrates standard 3-vessel arch anato my. No dissection is seen. Pulmonary vasculature: The pulmonary trunk is normal in caliber. There are no filling defects identif ied in main, lobar, or segmental pulmonary branches to suggest pulmonary embolus. Heart: The heart is normal in size and without pericardial effusion. Lungs and pleural spaces: There is a small right pleural effusion with right basilar consolidation. T he left lung appears clear. The trachea and central airways are patent. Mediastinum: There is no mediastinal lymphadenopathy. [place]: Clear. Axillae: There is no axillary lymphadenopathy. Upper abdomen: A small hiatal hernia is noted. An approximately 7.5 x 5.5 cm simple-appearing fluid c ollection is again seen below the right hemidiaphragm at the right adrenal resection site. There are punctate foci of gas which have significantly decreased from 07/31/2020. Skeletal structures: No lytic or blastic bony lesions are seen. IMPRESSION: 1. There is no evidence of pulmonary embolus in the main, lobar, or segmental pulmonary arteries. 2. Small right pleural effusion with right basilar consolidation. This likely represents atelectasis and clinical correlation will be required. 3. A postoperative fluid collection below the right hemidiaphragm is again seen at the site of adrena l resection. The sterility of this fluid cannot be assessed by CT. ACT 112: Negative or not required by law. Electronically signed by: Abdullahi Renner M.D. 08/13/2020 8:18 AM
--- NOTE | 2020-08-13 08:50 | Urology Progress Note ---
Date of Service August 13, 2020 Assessment & Plan (1) Hx of total adrenalectomy: (2) Pleuritic chest pain: 34 yo M admitted for pleuritic chest pain, adrenal fluid collection s/p right adrenalectomy. - Pt s/p Robotic Right Adrenalectomy with resection of retroperitoneal mass, resection of inferior liver edge attached to the mass, extensive lysis of adhesions on 07/[address] Briceno. - Afebrile overnight, nontoxic, lab work reviewed - WBC decreased to 11.98, Hgb 13.3, creatinine stable. - Pain markedly improved today. Pain possibly due to irritation of the diaphragm from fluid collection. - Case discussed with Dr. Briceno. - CTAP reviewed - fluid collection has diminished since previous scan 07/31, no significant air to suggest abscess. - His leukocytosis has improved overnight without antibiotics, no fevers. - Continue supportive care and prn pain management. - Continue home Protonix. - Will treat empirically with Ceftriaxone 1 gram today, then transition to PO Ciprofloxacin upon discharge. - Anticipate discharge home later today or tomorrow with close follow-up presuming he continues to improve. Admission and Anticipated Discharge Date Admission Date: August 12, 2020 Subjective Patient seen and examined at bedside this AM. Awake, resting in bed on arrival, appears comfortable. Reports he is feeling better this morning. Notes no pain while resting in bed, but reports 1/10 pain with deep inspiration or prolonged talking. Last pain medication utilized - Ketorolac on 08/12 @2145. Reports that shoulder pain is resolved. Notes mild acid reflux - has not had his home Protonix today. No flank or abdominal pain. Tolerating diet, no nausea or vomiting. Voiding without difficulty. No dysuria or hematuria. No fever or chills. Chart review: Afebrile, creatinine 1.02, WBC 11.98 (previously 17.49), Hgb 13.3 Review of Systems Constitutional: as per Subjective / HPI Respiratory: as per Subjective / HPI Cardiovascular: as per Subjective / HPI Gastrointestinal: as per Subjective / HPI Genitourinary: + as per Subjective / HPI Physical Exam Constitutional: well developed and well nourished; no acute distress and not ill appearing Respiratory: normal respiratory effort and able to speak in complete sentences; no respiratory distress and no labored breathing Cardiovascular: Extremities: no pedal edema Gastrointestinal (Abdomen): Inspection/Auscultation: abdomen normal to inspection; abdomen not distended Percussion/Palpation: + abdomen tender (mild tenderness to palpation at surgical incision) and abdomen soft; no guarding Musculoskeletal: Head/Neck/Chest: normocephalic and head atraumatic Skin: no rashes, warm and dry Neurologic: moves all extremities and awake Psychiatric: Orientation: alert and oriented x 3 Genitourinary: no CVA tenderness Results & Data ([facility]) Vital Signs (Past 12 Hours) Vital Signs Temp Pulse Resp BP BP Pulse Ox Pulse Ox 08/13/20 07:27 36.9 C 95 H 16 92/61 L 96 08/13/20 01:43 98/69 L 08/13/20 01:30 37.1 C 100 H 17 121/75 96 96 08/12/20 22:00 90 18 149/92 H 99 PG Care Time/CCT Total # of Minutes Spent Total Time Spent with Patient: Total time spent is greater than 50% in coordination of care (as documented) at patient's floor/unit and/or counseling patient: Coding Level of Care Code 21317 Subseq Hosp Care Lvl 2 Diagnoses Hx of total adrenalectomy E89.6 Pleuritic chest pain R07.81
[2020-08-13] MEDS ORDERED: cefTRIAXone SODIUM 2,000 MG in DEXTROSE 5% 50 ML IV ONE (10:30)
[2020-08-13] MEDS: PANTOprazole 40 MG TAB PO SCH (10:40)
--- NOTE | 2020-08-13 16:24 | History & Physical Report ---
Date of Service August 13, 2020 Assessment & Plan (1) Near syncope: 34 y/o M Hx JAD, myelolipoma which was resected 07/23 with a R adrenalectomy. He presented with pleuritic CP a few days prior and was found to have a post-op fluid collection. This is not an unusual finding and he was DCd from the ER. He then returned to the ER with persistent GERD and after having a near syncopal episode while smoking a cigarette. The pt states that when he was picked up by EMS, they stated his BP was low. His blood pressure has been low in the hospital, although he does not have any related symptoms. When he arrived his WBC count was over 17. Subsequent decreased to 12. Platelet count is high but also decreasing and LFTs were elevated and are trending down. 1) Pleuritic CP with a fluid collection and leukocytosis - There was concern for infection. I do not see the disadvantage in continuing a course of antibiotics if there is uncertainty. Suspicion is low however, it may be very consequential if he is infected and does not receive prompt treatment. An outpt course of Augmentin and possibly Flagyl could be considered. 2) Near syncope and low BP - he is post adrenalectomy and may not be adequately compensating. We will check a random cortisol. This may require additional workup if the number is nondiagnostic. A decision on treatment may also be complicated and should likely be done in consultation with endocrine. 3) LFT elevations - not an alcoholic ratio would be concerned with hypoperfusion if the downward trend reverses. Otherwise he can simply follow as an outpt 4) GERD - should remain on a PPi - advised to decrease ETOH intake and stop smoking. He should be aware if he is placed on Flagyl that he may have a severe reaction. 5) ETOH abuse - does not exhibits withdrawal signs and states he will cut back - advised not to drink anything for at least a few weeks while he recovers. Please consider the above a consult Total time for this consult including review of labs, meds, imaging, records - discussion/exam with pt 40 min (2) Elevated liver enzymes: (3) Pleuritic chest pain: (4) Leukocytosis: (5) Hx of total adrenalectomy: Admission and Anticipated Discharge Date Admission Date: August 12, 2020 History of Present Illness Chief Complaint: chest and back pain - consult for surgery service Primary Care Provider: [facility] 34 y/o M Hx JAD, myelolipoma which was resected 07/23 with a R adrenalectomy. He presented with pleuritic CP a few days prior and was found to have a post-op fluid collection. This is not an unusual finding and he was DCd from the ER. He then returned to the ER with persistent GERD and after having a near syncopal episode while smoking a cigarette. The pt states that when he was picked up by EMS, they stated his BP was low. His blood pressure has been low in the hospit al, although he does not have any related symptoms. When he arrived his WBC count was over 17. Subsequent decreased to 12. Platelet count is high but also decreasing and LFTs were elevated and are trending down. PMH: 1) HTN 2) HLD 3) JAD - noncompliant with CPAP 4) Myelolipoma 5) Childhood epilepsy Surgical: Adrenalectomy and resection of retroperitoneal mass 07/23/20 Social: The pt is a heavy drinker. He states he goes out 3-4 times per week and has up to 12 drinks when he does. He smokes 1/2 pack daily. He is a college student. Family: Parents are alive and well - father has HTN Allergies Allergy/AdvReac Type Severity Reaction Status Date / Time No Known Allergies Allergy Verified 08/12/20 19:49 Home Medications Medication Instructions Recorded Confirmed Type miscellaneous medical supply #1 ea 10/29/18 07/30/20 Rx pantoprazole 40 mg PO QAM #30 tab 07/24/20 08/12/20 Rx cetirizine [Zyrtec] 10 mg PO QAM 07/31/20 08/12/20 History 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 2 > "grew out of"/no issues since Hyperlipemia no meds Hypertension no meds Myelolipoma JAD (obstructive sleep apnea) Non-compliant with CPAP Seasonal allergies Surgical History History of appendectomy History of colonoscopy Family History Other Hypertension Social History Smoking Status: Current some day smoker Tobacco Type: Cigarettes Cigarettes Per Day: 10 cigs per day; Second Hand Exposure: No; Do You Dip or Chew Tobacco: No; Tobacco Cessation Education Requested by Patient: No Hx Alcohol Use: Yes Alcohol type: hard liquor Alcohol Intake Frequency Comment: 5 times a week, 4 drinks at least up to 12 drinks Hx Substance Use: No Preferred Language: Portuguese Communication Ability: Effective 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 Current Living Situation: Alone Other Information That Helps Us Care for You: No Feels Safe at Home: Yes Safety Concerns: Feels Safe At This Time Assistive Devices: None Review of Systems Review of Systems: Gen: Denies fevers, night sweats, rigors, fatigue, malaise, weight loss/gain ENT: Denies congestion, throat pain, hearing loss Eyes: Denies acute visual changes CV: Denies CP, palpitations Pulmonary: + pleuritic back and chest pain GI: Described persistent GERD and felt that epigastric pain was radiating to his R shoulder Neuro: Denies acute or unilateral weakness, acute gait impairment, headache or acute visual changes Musculoskeletal: Denies joint pain, inflammation Endocrine: Denies polydipsia, polyuria Skin: Denies acute rashes or ulcers Physical Exam Physical Exam: General: AAO x 3, no distress ENT: No erythema or exudates, no thrush Eyes: CHIP, EOMI Head and neck: Normocephalic, atraumatic, No JVD, neck is supple. Chest/heart: Nontender, S1,2, RRR, no murmurs, no gallops Lungs: CTAB, no wheezing or crackles Abdomen: Nontender, nondistended, BS+ Neuro: AAO x 3, speech is clear, no unilateral weakness or loss of sensation, coordination intact Musculoskeletal: No joint inflammation, muscle tenderness, FROM Skin: No acute rashes or ulcers Extremities: No clubbing, cyanosis, edema Results & Data Results & Data ([facility]) Vital Signs (Past 12 Hours) Vital Signs Temp Pulse Resp BP Pulse Ox 08/13/20 14:34 98.2 F 85 16 91/58 L 96 08/13/20 07:27 98.4 F 95 H 16 92/61 L 96 Code Status & VTE Plan VTE Prophylaxis Plan VTE Prophylaxis will be ordered: Yes PG Care Time/CCT Total # of Minutes Spent Total Time Spent with Patient: Total time spent is greater than 50% in coordination of care (as documented) at patient's floor/unit and/or counseling patient: Coding Level of Care Code 90977 Initial Inpt Care Lvl 3 Diagnoses Near syncope R55 Elevated liver enzymes R74.8 Pleuritic chest pain R07.81 Leukocytosis D72.829 Leukocytosis type: unspecified Hx of total adrenalectomy E89.6 (1) Leukocytosis Leukocytosis type: unspecified Qualified Code(s): D72.829 - Elevated white blood cell count, unspecified
--- NOTE | 2020-08-13 22:45 | Electrocardiogram Report ---
Test Reason : Blood Pressure : / mmHG Vent. Rate : 091 BPM Atrial Rate : 091 BPM P-R Int : 140 ms QRS Dur : 098 ms QT Int : 342 ms P-R-T Axes : 027 064 033 degrees QTc Int : 420 ms Normal sinus rhythm Normal ECG When compared with ECG of 06-AUG-2020 02:07, No significant change was found Confirmed by Sascha Schmidt ([id number]) on 08/13/2020 10:45:32 PM Referred By: REFERRED SELF Confirmed By:Sascha Schmidt
[2020-08-14] MEDS: PANTOprazole 40 MG TAB PO SCH (07:27)
[2020-08-14 07:50] LABS: Basophils % (auto) 1.2 %; Eosinophils # (auto) 1.12 K/uL (0-0.5); Eosinophils % (auto) 13.3 %; Hematocrit (blood only) 42.2 % (42-52); Hemoglobin 14.1 g/dL (14.0-18.0); Immature Granulocytes # (auto) 0.04 K/uL (0.00-0.02); Immature Granulocytes % (auto) 0.5 %; Lymphocytes % (auto) 20.1 %; Mean Corpuscular Hemoglobin 27.9 pg (25-34); Mean Corpuscular Hgb Conc 33.4 g/dL (32-36); Mean Corpuscular Volume 83.6 fL (80-100); Mean Platelet Volume 9.6 fL (7.4-10.4); Monocytes # (auto) 0.83 K/uL (0.11-0.59); Monocytes % (auto) 9.8 %; Neutrophils # (auto) 4.66 K/uL (1.4-6.5); Neutrophils % (auto) 55.1 %; Platelet Count 432 K/uL (130-400); RDW Coefficient of Variation 13.7 % (11.5-14.5); RDW Standard Deviation 41.7 fL (36.4-46.3); Red Blood Count 5.05 M/uL (4.7-6.1); White Blood Count 8.45 K/uL (4.8-10.8)
[2020-08-14 08:21] LABS: BUN Creatinine Ratio 11.8 (10-20); Calcium 9.1 mg/dl (8.5-10.1); Creatinine Clr Calc Pharmacy 137.1 ml/min; Est GFR (African American) 130.8 ml/min; Est GFR (Non-African American) 112.9 ml/min
--- NOTE | 2020-08-14 11:41 | Urology Progress Note ---
Date of Service August 14, 2020 Assessment & Plan (1) Hx of total adrenalectomy: (2) Pleuritic chest pain: 34 yo M admitted for pleuritic chest pain, adrenal fluid collection s/p right adrenalectomy. - Pt s/p Robotic Right Adrenalectomy with resection of retroperitoneal mass, resection of inferior liver edge attached to the mass, extensive lysis of adhesions on 07/[address] Briceno. - Patient feeling well today, reports minimal pain. - Remains afebrile, nontoxic, lab work reviewed - WBC 8.45 today, Hgb 14.1, creatinine stable. - Plan of care discussed with hospitalist. From their standpoint, stable for discharge and recommend home on Augmentin and follow-up with PCP. - Patient to follow-up as outpatient will urology as scheduled. - Stable for discharge home today. - Expected clinical course reviewed with patient, all questions were answered. Admission and Anticipated Discharge Date Admission Date: August 12, 2020 Subjective Patient seen and examined at bedside this AM. Awake, resting in bed on arrival, appears comfortable. Notes no pain while resting in bed, but reports minimal pain with deep inspiration. No flank or abdominal pain. Tolerating diet, no nausea or vomiting. Voiding without difficulty. No dysuria or hematuria. No fever or chills. Chart review: Afebrile, creatinine 0.85, WBC 8.45 (previously 11.98), Hgb 14.1 Review of Systems Review of Systems: All systems reviewed & are unremarkable except as noted in HPI & below Physical Exam Constitutional: well developed and well nourished; no acute distress and not ill appearing Respiratory: no labored breathing and no audible wheezes Gastrointestinal (Abdomen): Inspection/Auscultation: abdomen normal to inspection; abdomen not distended Percussion/Palpation: + abdomen tender (mild tenderness to palpation at surgical incision) and abdomen soft; no guarding Musculoskeletal: Head/Neck/Chest: normocephalic Skin: no rashes, warm and dry Neurologic: moves all extremities and awake Psychiatric: A+Ox3, euthymic affect Genitourinary: no CVA tenderness Results & Data ([facility]) Vital Signs (Past 12 Hours) Vital Signs Temp Pulse Resp BP Pulse Ox 08/14/20 10:17 36.7 C 84 17 92/59 L 97 08/14/20 05:36 36.7 C 84 17 92/59 L 97 PG Care Time/CCT Total # of Minutes Spent Total Time Spent with Patient: Total time spent is greater than 50% in coordination of care (as documented) at patient's floor/unit and/or counseling patient: Coding Level of Care Code 10664 Subseq Hosp Care Lvl 2 Diagnoses Hx of total adrenalectomy E89.6 Pleuritic chest pain R07.81
--- NOTE | 2020-08-14 16:26 | Hospitalist Progress Note ---
Date of Service August 14, 2020 Assessment & Plan (1) Pleuritic chest pain: * At this time, patient is 18 days postop. Imaging reveals a consolidation in the right lower lobe and a fluid collection under the right diaphragm. With the associated leukocytosis and pleuritic discomfort, the fluid collection could be hematoma versus seroma. Per primary team if this needs drained. I think it would be appropriate to trial antibiotic therapy and since he has remained hemodynamically stable to repeat imaging to ensure resolution. * In addition, it is quite possible that he had postoperative atelectasis and since developed pneumonia. * Pneumonia could be causing his pleuritic-like pain. * Would recommend 10 day treatment of Augmentin (which would cover hospital- acquired pneumonia given his recent hospitalization and should provide adequate anaerobic coverage for the gut). Patient should have repeat imaging in 6 to 12 weeks to ensure resolution of consolidation in the right lung and resorption of fluid collection (hematoma versus seroma). * If symptoms get worse, should consider aspiration of this fluid collection * Given clinical improvement, no contraindication to proceed with discharge with continued antibiotic therapy as an outpatient * Will sign off on this patient from a medical standpoint; however, do not hesitate to reconsult should a problem arise * Thank you for allowing me to part spent in the care of this patient (2) Leukocytosis: Resolved with antibiotic therapysee above (3) Adrenal hematoma: See above Admission and Anticipated Discharge Date Admission Date: August 12, 2020 Subjective Mr. Tolliver is a 34-year-old white male with a past medical history of GERD. He was seen in consultation for right sided pleuritic pain. om 07/27-He underwent right adrenalectomy and reports "part of the liver" needed to be removed due to the size for myelolipoma. He had a 3-day hospital stay and was subsequently discharged to home. 3 days postoperatively, he developed body aches, and a productive cough of green sputum. Symptoms were self-limiting and improved with Tylenol. He then had 2 near syncopal episodes (that occurred following a night of drinking alcohol) which prompted him to come into the ED. There he was found to have elevated LFTs and told to refrain from Tylenol/alcohol. He was subsequently discharged home. He followed up with his surgeon and claims "always well". Last week, he developed substernal chest discomfort that was described as a "burning/tightness" and worse with deep inspiration. He had a cough without fevers or chills. Pain radiated into the right upper quadrant with deep inspiration. He presented to the ED and was found to have leukocytosis of 17,000. A CTA was performed showing no evidence of PE but questionable consolidation in the right base with a pleural effusion and a postoperative fluid collection below the right hemidiaphragm (hematoma versus seroma). Patient was treated with Rocephin and subsequently hospitalized. Patient's white blood cell count has down trended to 11.9. He claims that the pain has overall improved but still minor. He is hemodynamically stable. He did have some mild low blood pressures of 92/59 but is asymptomatic. He is not tachycardic, febrile, or requiring supplemental oxygen. He did have a random cortisol level due to the recent adrenalectomy and it was normal at 9.52. He has no electrolyte abnormalities. Review of Systems Review of Systems: As per HPI Denies chest pain, palpitations, abdominal pain, nausea, vomiting, diarrhea, constipation. Physical Exam Physical Exam: General: Resting comfortably in his hospital bed. A&O X3 NAD. Cardiac: RRR without M/G/R Lungs: CTA without W/R/R Abdomen: Normoactive X4. Soft and nontender in all quadrants. Extremities: No peripheral clubbing cyanosis or edema Results & Data Results & Data ([facility]) Vital Signs (Past 12 Hours) Vital Signs Temp Pulse Resp BP Pulse Ox 08/14/20 10:17 36.7 C 84 17 92/59 L 97 08/14/20 05:36 36.7 C 84 17 92/59 L 97 Laboratory Results 08/14/20 07:28 08/14/20 07:28 PG Care Time/CCT Total # of Minutes Spent Total Time Spent with Patient: Total time spent is greater than 50% in coordination of care (as documented) at patient's floor/unit and/or counseling patient: [place] [address] Inpt Consult Level 3 Patient Type Established History Detailed Exam Detailed Medical Decision Making Low Complexity Diagnoses Pleuritic chest pain R07.81 Leukocytosis D72.829 Leukocytosis type: unspecified Adrenal hematoma S37.812D Encounter type: subsequent encounter (1) Leukocytosis Leukocytosis type: unspecified Qualified Code(s): D72.829 - Elevated white blood cell count, unspecified (2) Adrenal hematoma Encounter type: subsequent encounter Qualified Code(s): S37.812D - Contusion of adrenal gland, subsequent encounter
--- NOTE | 2020-09-02 13:07 | Discharge Summary ---
Date of Service September 02, 2020 Admission HPI Per Admitting Provider 34 y/o M Hx JAD, myelolipoma which was resected 07/23 with a R adrenalectomy. He presented with pleuritic CP a few days prior and was found to have a post-op fluid collection. This is not an unusual finding and he was DCd from the ER. He then returned to the ER with persistent GERD and after having a near syncopal episode while smoking a cigarette. The pt states that when he was picked up by EMS, they stated his BP was low. His blood pressure has been low in the hospital, although he does not have any related symptoms. When he arrived his WBC count was over 17. Subsequent decreased to 12. Platelet count is high but also decreasing and LFTs were elevated and are trending down. PMH: 1) HTN 2) HLD 3) JAD - noncompliant with CPAP 4) Myelolipoma 5) Childhood epilepsy Surgical: Adrenalectomy and resection of retroperitoneal mass 07/23/20 Social: The pt is a heavy drinker. He states he goes out 3-4 times per week and has up to 12 drinks when he does. He smokes 1/2 pack daily. He is a college student. Family: Parents are alive and well - father has HTN Principal Diagnosis Syncope Discharge Exam Constitutional well developed and well nourished; no acute distress and not ill appearing Respiratory normal respiratory effort and able to speak in complete sentences; no respiratory distress, no labored breathing and no audible wheezes Cardiovascular Extremities: no pedal edema Gastrointestinal (Abdomen) Inspection/Auscultation: abdomen normal to inspection; abdomen not distended Percussion/Palpation: + abdomen tender (mild tenderness to palpation at surgical incision) and abdomen soft; no guarding Musculoskeletal Head/Neck/Chest: normocephalic and head atraumatic Skin no rashes, warm and dry Neurologic moves all extremities and awake Psychiatric A+Ox3, euthymic affect Orientation: alert and oriented x 3 Genitourinary no CVA tenderness Discharge Data Allergies Allergy/AdvReac Type Severity Reaction Status Date / Time No Known Allergies Allergy Verified 08/17/20 23:57 Consultations 08/12/20 23:28 ED Decision to Admit Stat 08/13/20 15:50 Consult Hospitalist Routine Ordered Studies 08/12/20 21:56 CT angio chest PE protocol Urgent Hospital Course (1) Hx of total adrenalectomy: Patient admitted due to near syncopal episode with some chest pain approximately 3 to 4 weeks after adrenalectomy. Was monitored and assessed. Hospitalist team was utilized to assess patient for his issues. With supportive care and pain management patient was able to be discharged home without further issue (2) Pleuritic chest pain: Total Time Total Time Spent Total Time Spent (In Minutes): 10 Discharge Plan Discharge Items Patient Disposition: Home - Self-Care Reason For Visit: PLEURITIC CHEST PAIN Discharge Diagnosis: PLEURITIC CHEST PAIN Condition on Discharge: Fair Activity: Resume your previous activity Lifting: None Bathing: No limitations Sexual Activity: When tolerated Exercise/Sports: Gradually increase as tolerated Driving/Machine Use: Resume 3 days after discharge Non-emergency contact: Urologist Call non-emergency contact if: you have any medication questions, your pain is n ot controlled, you have a fever, your temperature is above 101, your wound has increased redness, your wound has increased drainage and your wound pain has increased Follow-up/Referrals: Eleno Slade MD [Physician] - 10/16/20 12:30 pm (Appointment will be with Pankaj Stafford.Office will call if they can get you in any sooner) Pankaj Briceno DO [Physician] - 11/11/20 2:40 pm [facility] [Primary Care Provider] - Diet: Regular Addtl Attending Provider Instructions: Please take all medications as prescribed and keep follow-ups as scheduled. Please call our office at [phone] with any questions, concerns or need to reschedule appointments for any reason. We are happy to assist you. Addtl Wet End Helper Provider Instructions: Would recommend completion of antibiotic therapy follow up with your PCP: 7-10 days would advise FU CT of the chest (without contrast would be sufficient) to follow up on ?hematoma vs abscess and opacity in the lung -- this is at the discretion of your PCP Pending Studies at Discharge: No Stand-Alone Forms: My [employer], Smoking Cessation Medications and DC Order Prescriptions: New amoxicillin-pot clavulanate [Augmentin] 875-125 mg tablet 1 tab PO BID Qty: 20 RF: 0 Continued (DME) BI-PAP/Supplies Misc See Dose Instructions .ROUTE .MEDSUPPLY Qty: 1 RF: 0 pantoprazole 40 mg Tablet,Delayed Release (Dr/Ec) 40 mg PO QAM Qty: 30 RF: 0 cetirizine [Zyrtec] 10 mg Tablet 10 mg PO QAM RF: 0 Discharge Orders: Discharge Order (Routine); Ordered 08/14/20 Ordered By: Ondina Fuentes/Other Patient Handouts: Discharge Instructions for ..., Managing Post-Op Pain at Home Admission Data Admit Date/Time: 08/12/20 23:43 Attending Provider: Fredy Coy Admit Provider: Fredy Coy Primary Care Provider: [facility] Other Interventions: Discharge Summary Assessment (RN) Last Done: 08/14/20 10:17 Coding Level of Care Code D/C DAY MANAGEMENT <30 MINS Diagnoses Hx of total adrenalectomy E89.6 Pleuritic chest pain R07.81
== END 2020-08-14 13:37 | disposition home or self-care (01) ==
LOC: 3E 17:41 → ED 17:41 → 3E 08-13 01:43
DX: K21.9 Gastro-esophageal reflux disease without esophagitis; R74.8 Abnormal levels of other serum enzymes; I10 Essential (primary) hypertension; R55 Syncope and collapse; E78.5 Hyperlipidemia, unspecified; Z90.89 Acquired absence of other organs; F17.210 Nicotine dependence, cigarettes, uncomplicated; S37.81 Injury of adrenal gland; R07.81 Pleurodynia; G47.33 Obstructive sleep apnea (adult) (pediatric); D72.829 Elevated white blood cell count, unspecified